=== PATIENT | male | born 1960 | race Caucasian/White ===

== ENCOUNTER → 2017-03-28 | Outpatient (CLI) | payer OTHER ==
[2017-03-28 09:18] VITALS: BP 111/78; PULSE 72; TEMP 97.8; BMI 69.5
--- NOTE | 2017-03-28 09:46 | P.GSHP ---
History of Present Illness H&P Date: 03/28/17 Chief Complaint: Morbid obesity BMI 69.5 57 years old male with morbid obesity BMI 69, height 5 feet 10.5 inches, weight 223.16 KG presents for bariatric surgery consultation. Patient has elected to undergo laparoscopic RYGB possible sleeve . He has attended weight loss seminar. He has attempted nonsurgical weight loss with special diets and exercise regimen. He has lost some weight but is unable to maintain sustained results. His comorbid conditions include obstructive sleep apnea on BiPAP, hypertension, hypercholesterolemia, chronic Afib and anxiety disorder Preop Visit #1 , 03/28/17 , weight 223KG, BMI 69.5 - Review of Systems Comment: Constitutional: Denies fever, weight loss or loss of appetite HEENT: No difficulty in vision or hearing. Denies dysphagia. Cardiovascular: Has chronic A fib. Denies chest pain, palpitations, dizziness, shortness of breath. Respiratory: No cough or SOB.Sleep apnea on CPAP Gastrointestinal: No recent change in bowel habits, no abdominal pain, no nausea or vomiting. Mild reflux symptoms and no postprandial right upper quadrant pain. Integumentary: No history of ulcers or rash Genitourinary: No urinary incontinence, hematuria or dysuria Neurologic: No seizures, denies weakness in upper or lower extremities Psychiatry: Known history of anxiety , no suicidal ideation Past Medical History Past Medical History: Atrial Fibrillation, GERD/Reflux, Hypertension, Sleep Apnea/CPAP/BIPAP History of Any Multi-Drug Resistant Organisms: None Reported Past Surgical History: Orthopedic Surgery Additional Past Surgical History / Comment(s): right rotator cuff surgery right foot surgery Past Anesthesia/Blood Transfusion Reactions: No Reported Reaction Past Psychological History: Anxiety Smoking Status: Former smoker Past Alcohol Use History: None Reported Additional Past Alcohol Use History / Comment(s): quit smoking over 20 years ago Past Drug Use History: None Reported Medications and Allergies Home Medications Medication Instructions Recorded Confirmed Type Apixaban [Eliquis] 1 tab PO BID 03/28/17 03/28/17 History Aspirin 1 tab PO DAILY 03/28/17 03/28/17 History Cholecalciferol [Vitamin D3] 1 tab PO BID 03/28/17 03/28/17 History Cyanocobalamin (Vitamin B-12) 1 tab PO DAILY 03/28/17 03/28/17 History [Vitamin B-12] L.acidoph,Paracasei, B.lactis 1 tab PO DAILY 03/28/17 03/28/17 History [Probiotic] Metoprolol Succinate [Toprol XL] 1 tab PO BID 03/28/17 03/28/17 History Multivitamin [Multiple Vitamins] 1 tab PO DAILY 03/28/17 03/28/17 History Naproxen Sodium 1 tab PO QID 03/28/17 03/28/17 History [place]-3 Fatty Acids/Fish Oil [Fish 1 cap PO DAILY 03/28/17 03/28/17 History Oil 1,000 mg Capsule] Omeprazole [PriLOSEC] 2 cap PO DAILY 03/28/17 03/28/17 History Ranitidine HCl [Zantac] 1 tab PO HS 03/28/17 03/28/17 History Valsartan/Hydrochlorothiazide 1 tab PO BID 03/28/17 03/28/17 History [Valsartan-Hctz 80-12.5 mg Tab] Venlafaxine HCl [Effexor XR] 1 cap PO DAILY 03/28/17 03/28/17 History amLODIPine [Norvasc] 1 tab PO DAILY 03/28/17 03/28/17 History diphenhydrAMINE [Benadryl] 1 tab PO DAILY 03/28/17 03/28/17 History Allergies Allergy/AdvReac Type Severity Reaction Status Date / Time No Known Allergies Allergy Verified 03/28/17 08:41 Surgical - Exam Vital Signs Temp Pulse BP 97.8 F 72 111/78 03/28/17 09:07 03/28/17 09:07 03/28/17 09:07 General: Patient is alert and oriented to time, place and person and cooperative with exam. He is not in acute distress. HEENT: No pallor, no icterus, no thyroid enlargement, no cervical lymphadenopathy. Chest: Bilateral equal breath sounds present. No wheezes, no crackles. Cardiovascular: Regular rate and rhythm. Abdomen: Soft, nontender, nondistended. No right upper quadrant tenderness. Duenas sign negative. Integumentary: No active ulcers or discharge. Neurologic: Cranial nerves II-XII intact. Strength upper and lower extremities 5/5. No focal neurologic deficits. Gait is normal. Psychiatric: No anxiety or psychosis. No suicidal thoughts. Assessment and Plan (1) Hypertension Status: Acute (2) Morbid obesity with BMI of 60.0-69.9, adult Status: Acute (3) Obstructive sleep apnea on CPAP Status: Acute (4) Atrial fibrillation Status: Acute (5) Osteoarth NOS-l/leg Status: Acute Plan: 1. A detailed discussion was held about the risks, benefits and potential complications of laparoscopic RYGB and sleeve gastrectomy including bleeding, infection, anastomosis leak, stenosis, DVT and PE. Patient demonstrated understanding and willing to undergo the procedure. Patient was explained about high-protein liquid diet 2 weeks prior to surgery. He is also considering sleeve and possible duodenal switch if more weight loss needed. 2. Formal Dietitian consult pending. Patient does eat a lot of fast food . He was recommended to drink protein shakes for snacks. I discussed about reducing the portion size, limiting refined carbohydrates and sugar and increase protein intake 3. Patient scheduled for esophagogastroduodenoscopy with antral biopsy and colonoscopy 4. Baseline lab work ordered. 12-lead EKG ordered 5. Cask Maker's recommendations and clearance awaited- Known A fib. May need lovenox bridge therapy in the perioperative period 6. Psychiatrist/ psychologist's recommendations pending
== END | disposition home or self-care (01) ==
LOC: BARWHC3 07:21
PROVIDERS: ATTEND Surgery
DX: E66.01 Morbid (severe) obesity due to excess calories (principal); I48.91 Unspecified atrial fibrillation; K21.9 Gastro-esophageal reflux disease without esophagitis; I10 Essential (primary) hypertension; F41.9 Anxiety disorder, unspecified; G47.33 Obstructive sleep apnea (adult) (pediatric); M19.90 Unspecified osteoarthritis, unspecified site; Z79.1 Long term (current) use of non-steroidal anti-inflammatories (NSAID); Z87.891 Personal history of nicotine dependence; Z79.01 Long term (current) use of anticoagulants; Z79.899 Other long term (current) drug therapy; Z79.82 Long term (current) use of aspirin; Z68.42 Body mass index [BMI] 45.0-49.9, adult
CPT/HCPCS: 99201

== ENCOUNTER 2017-05-02 11:31 | Day surgery (SDC) | payer OTHER ==
[2017-04-27 11:23] VITALS: BMI 70.4
[~2017-05-02 11:31] MED LIST: LACTATED RINGERS 1,000 ML IV SCH; LIDOCAINE 1% 20 ML VIAL (10MG/ML) FOR IV START INTRADERMA PRN
[2017-05-02 12:26] VITALS: RESP 18; TEMP 98
[2017-05-02] MEDS ORDERED: LACTATED RINGERS 1,000 ML IV ONE (12:26)
[2017-05-02] MEDS ORDERED: GLYCOPYRROLATE 0.2 MG/ML 2 ML VIAL ONE (14:20)
[2017-05-02] MEDS ORDERED: KETAMINE 10 MG/ML 20 ML VIAL ONE (14:20)
[2017-05-02] MEDS ORDERED: MIDAZOLAM 2 MG/2 ML VIAL ONE (14:20)
[2017-05-02] MEDS ORDERED: PROPOFOL 10 MG/ML 20 ML VIAL IV ONE (14:20)
[2017-05-02] MEDS ORDERED: LIDOCAINE 1% INJ 10MG/ML (20 ML MDV) ONE (14:20)
--- NOTE | 2017-05-02 14:25 | P.GSHP ---
History of Present Illness H&P Date: 05/02/17 Chief Complaint: Morbid obesity BMI 69.5 57 years old male with morbid obesity BMI 69, height 5 feet 10.5 inches, weight 223.16 KG presents for bariatric surgery consultation. Patient has elected to undergo laparoscopic RYGB possible sleeve . He has attended weight loss seminar. He has attempted nonsurgical weight loss with special diets and exercise regimen. He has lost some weight but is unable to maintain sustained results. His comorbid conditions include obstructive sleep apnea on BiPAP, hypertension, hypercholesterolemia, chronic Afib and anxiety disorder Preop Visit #1 , 03/28/17 , weight 223KG, BMI 69.5 - Review of Systems Comment: Constitutional: Denies fever, weight loss or loss of appetite HEENT: No difficulty in vision or hearing. Denies dysphagia. Cardiovascular: Has chronic A fib. Denies chest pain, palpitations, dizziness, shortness of breath. Respiratory: No cough or SOB.Sleep apnea on CPAP Gastrointestinal: No recent change in bowel habits, no abdominal pain, no nausea or vomiting. Mild reflux symptoms and no postprandial right upper quadrant pain. Integumentary: No history of ulcers or rash Genitourinary: No urinary incontinence, hematuria or dysuria Neurologic: No seizures, denies weakness in upper or lower extremities Psychiatry: Known history of anxiety , no suicidal ideation Past Medical History Past Medical History: Atrial Fibrillation, GERD/Reflux, Hyperlipidemia, Hypertension, Sleep Apnea/CPAP/BIPAP Additional Past Medical History / Comment(s): USES BIPAP WITH O2 SUPPLEMENT AT 3L FOR SLEEP History of Any Multi-Drug Resistant Organisms: None Reported Past Surgical History: Orthopedic Surgery Additional Past Surgical History / Comment(s): right rotator cuff surgery right foot surgery Past Anesthesia/Blood Transfusion Reactions: No Reported Reaction Smoking Status: Former smoker - Past Family History Mother Family Medical History: Deep Vein Thrombosis (DVT) Medications and Allergies Home Medications Medication Instructions Recorded Confirmed Type Apixaban [Eliquis] 5 mg PO BID 03/28/17 04/27/17 History Aspirin 81 mg PO HS 03/28/17 04/27/17 History Cholecalciferol [Vitamin D3] 2,000 unit PO QAM 03/28/17 04/27/17 History L.acidoph,Paracasei, B.lactis 1 tab PO QAM 03/28/17 04/27/17 History [Probiotic] Metoprolol Succinate [Toprol XL] 100 mg PO BID 03/28/17 04/27/17 History Multivitamin [Multiple Vitamins] 1 tab PO DAILY 03/28/17 04/27/17 History Naproxen Sodium 220 mg PO QID 03/28/17 04/27/17 History [place]-3 Fatty Acids/Fish Oil [Fish 1 cap PO QAM 03/28/17 04/27/17 History Oil 1,000 mg Capsule] Omeprazole [PriLOSEC] 40 mg PO QAM 03/28/17 04/27/17 History Ranitidine HCl [Zantac] 1 tab PO HS 03/28/17 04/27/17 History Valsartan/Hydrochlorothiazide 1 tab PO BID 03/28/17 04/27/17 History [Valsartan-Hctz 80-12.5 mg Tab] Venlafaxine HCl [Effexor XR] 150 mg PO QAM 03/28/17 04/27/17 History amLODIPine [Norvasc] 5 mg PO QAM 03/28/17 04/27/17 History diphenhydrAMINE [Benadryl] 25 mg PO DAILY 03/28/17 04/27/17 History Venlafaxine HCl [Effexor XR] 150 mg PO MOWEFR 04/27/17 04/27/17 History Vitamin B Complex 1 each PO QAM 04/27/17 04/27/17 History Allergies Allergy/AdvReac Type Severity Reaction Status Date / Time No Known Allergies Allergy Verified 04/27/17 11:07 Surgical - Exam Vital Signs Temp Pulse Resp BP Pulse Ox 98.0 F 78 18 117/67 97 05/02/17 12:25 05/02/17 12:25 05/02/17 12:25 05/02/17 12:25 05/02/17 12:25 General: Patient is alert and oriented to time, place and person and cooperative with exam. He is not in acute distress. HEENT: No pallor, no icterus, no thyroid enlargement, no cervical lymphadenopathy. Chest: Bilateral equal breath sounds present. No wheezes, no crackles. Cardiovascular: Regular rate and rhythm. Abdomen: Soft, nontender, nondistended. No right upper quadrant tenderness. Duenas sign negative. Integumentary: No active ulcers or discharge. Neurologic: Cranial nerves II-XII intact. Strength upper and lower extremities 5/5. No focal neurologic deficits. Gait is normal. Psychiatric: No anxiety or psychosis. No suicidal thoughts. Assessment and Plan (1) Atrial fibrillation Status: Acute (2) Hypertension Status: Acute (3) Morbid obesity with BMI of 60.0-69.9, adult Status: Acute (4) Obstructive sleep apnea on CPAP Status: Acute (5) Osteoarth NOS-l/leg Status: Acute Plan: 1. A detailed discussion was held about the risks, benefits and potential complications of laparoscopic RYGB and sleeve gastrectomy including bleeding, infection, anastomosis leak, stenosis, DVT and PE. Patient demonstrated understanding and willing to undergo the procedure. Patient was explained about high-protein liquid diet 2 weeks prior to surgery. He is also considering sleeve and possible duodenal switch if more weight loss needed. 2. Formal Dietitian consult pending. Patient does eat a lot of fast food . He was recommended to drink protein shakes for snacks. I discussed about reducing the portion size, limiting refined carbohydrates and sugar and increase protein intake 3. Patient scheduled for esophagogastroduodenoscopy with antral biopsy and colonoscopy 4. Baseline lab work ordered. 12-lead EKG ordered 5. Online Editor's recommendations and clearance awaited- Known A fib. May need lovenox bridge therapy in the perioperative period 6. Psychiatrist/ psychologist's recommendations pending
[2017-05-02 15:26] VITALS: BP 118/73; PULSE 88
--- NOTE | 2017-05-02 16:42 | P.OP ---
Date of Procedure: 05/02/17 Preoperative Diagnosis: Postoperative Diagnosis: Procedure(s) Performed: Implants: Anesthesia: MAC Surgeon: Sasha Walker Pathology: other Condition: stable Disposition: PACU Indications for Procedure: Operative Findings: Description of Procedure: A timeout was performed to verify the correct patient and correct procedure. Patient was on continuous vitals and pulse ox monitoring throughout the procedure. She was placed in lateral decubitus position and an oral bite block was inserted. A well-lubricated Olympus upper endoscope was passed orally. The esophagus was intubated without difficulty. The vocal cords were visualised and protected at all times. The endoscope was passed beyond the pylorus into the first and second portion of the duodenum. No normality is noted in the duodenum mucosa. Two random biopsies were taken from the gastric antrum using cold biopsy forceps. The scope was then retroflexed. Small hiatal was noted which is Hill Grade I. No mass, active ulcer or bleeding stigmata noted within the gastric lumen. The GE junction is measured at 40 cm from the incisors . No evidence of reflux esophagitis. The endoscope was gradually withdrawn. No abnormality identified in the esophagus. Patient tolerated the procedure well and was taken to post anesthesia care unit in stable condition. SPECIMEN: Antral biopsy RECOMMENDATION: 1. Proceed with laparoscopic sleeve gastrectomyThe patient was brought to the endoscopy suite and placed in lateral decubitus position. IV sedation was given as per anesthesia team. Patient was on continuous vitals and pulse oximetry monitoring throughout the procedure. A timeout was performed to verify correct patient and correct procedure. Perianal examination did not show any external hemorrhoids. Digital rectal examination was performed. No masses or gross blood. A well-lubricated Olympus colonoscope was passed per rectally and was gradually advanced beyond the sigmoid colon, splenic flexure, transverse colon, hepatic flexure and cecum. The ileocecal valve was visualized as well as the appendiceal orifice . The colonoscope was gradually withdrawn inspecting all the mucosal surfaces. Bowel prep was good. No polyps, masses, AV malformations noted. Sigmoid diverticulosis noted without any evidence of acute diverticulitis. The scope was gradually withdrawn and retroflexed in the rectum . Grade 1 internal hemorrhoids seen. Total withdrawal time was greater than 6 minutes . Patient tolerated the procedure well and was taken to post anesthesia care unit in stable condition. Recommend repeat colonoscopy in 10 years . Pending pathology reports.
== END 2017-05-02 16:09 | disposition home or self-care (01) ==
LOC: ORWHC2ENDO 11:31
PROVIDERS: ATTEND Surgery
DX: Z01.818 Encounter for other preprocedural examination (principal); K21.9 Gastro-esophageal reflux disease without esophagitis; K29.50 Unspecified chronic gastritis without bleeding; K57.30 Diverticulosis of large intestine without perforation or abscess without bleeding; K64.0 First degree hemorrhoids; E66.01 Morbid (severe) obesity due to excess calories; Z68.44 Body mass index [BMI] 60.0-69.9, adult; G47.33 Obstructive sleep apnea (adult) (pediatric); Z99.89 Dependence on other enabling machines and devices; I10 Essential (primary) hypertension; E78.00 Pure hypercholesterolemia, unspecified; I48.2 Chronic atrial fibrillation; Z79.01 Long term (current) use of anticoagulants; F41.9 Anxiety disorder, unspecified; Z87.891 Personal history of nicotine dependence; Z79.82 Long term (current) use of aspirin; Z79.899 Other long term (current) drug therapy
CPT/HCPCS: 88305; 88342; 45378; 43239; J2250; J2001; J2704

== ENCOUNTER → 2017-09-19 | Outpatient (CLI) | payer OTHER ==
[2017-09-19 16:40] VITALS: BP 109/71; PULSE 75; TEMP 98.2; BMI 67.8
[2017-09-19 18:10] LABS: HCT 46.6 % (39.0-53.0); HGB 15.2 gm/dL (13.0-17.5); MCH 32.2 pg (25.0-35.0); MCHC 32.5 g/dL (31.0-37.0); Platelet Count 199 k/uL (150-450); RBC 4.71 m/uL (4.30-5.90); RDW 14.1 % (11.5-15.5); WBC 8.5 k/uL (3.8-10.6)
[2017-09-19 18:28] LABS: ALT 41 U/L (21-72); AST 25 U/L (17-59); Albumin 4.3 g/dL (3.5-5.0); Alkaline Phosphatase 53 U/L (38-126); Anion Gap 9 mmol/L; Blood Urea Nitrogen 32 mg/dL (9-20); Calcium 9.7 mg/dL (8.4-10.2); Carbon Dioxide 29 mmol/L (22-30); Chloride 102 mmol/L (98-107); Cholesterol 187 mg/dL (<200); Glucose 113 mg/dL (74-99); HDL Cholesterol 29 mg/dL (40-60); LDL Cholesterol,Calculated 117 mg/dL (0-99); Potassium 4.1 mmol/L (3.5-5.1); Sodium 140 mmol/L (137-145); Total Bilirubin 0.6 mg/dL (0.2-1.3); Total Protein 7.6 g/dL (6.3-8.2); Triglycerides 205 mg/dL (<150)
[2017-09-20 01:08] LABS: Iron Saturation 20.13 (15.00-50.00)
[2017-09-20 01:12] LABS: Vitamin D 25 Hydroxy 31.9 ng/mL (30.0-100.0)
[2017-09-20 01:23] LABS: Folate, Serum 12.3 ng/mL
[2017-09-20 04:34] LABS: Hemoglobin A1C 5.2 % (4.0-6.0)
--- NOTE | 2017-11-03 22:14 | P.HPBAR ---
Bariatric H&P - History & Physicial H&P Date: 09/19/17 History & Physicial: Visit/CC: initial visit Patient initial contact: Initial weight: Initial weight in pounds: Height: 5 ft 10.5 in Initial BMI: Last weight: Current weight: 217.498 kg Current weight in pounds: 479.50 Current BMI: 67.8 Gallant body weight (based on NIH guidelines): 76.657 kg Excess body weight loss: The patient is a 57 year-old M who presents for Bariatric Assessment. DATE OF SERVICE: 09/19/2017 REASON FOR CONSULTATION: Bariatric evaluation. HISTORY OF PRESENT ILLNESS: Yasmany Hagan is a 57-year-old male who comes in with long-standing morbid obesity. He initially presented to the bariatric Center in March 2017 after being seen by Dr. Walker. At that time, he had weighed 491 pounds. His body mass index was 69.6. As a result of his long- standing morbid obesity, he has developed severe obstructive sleep apnea and hypertensive heart disease. He also has reports gastroesophageal reflux disease. As a result of his cardiomyopathy, he has chronic atrial fibrillation. He has completed cardiac risk assessment. He has diffuse osteoarthritis. Now he presents for further evaluation and management. No reports of fatty food intolerance. No reports of esophageal or stomach cancer in his family. He has a strong family history of morbid obesity and family history of heart disease. At his height of 5 feet 10.5 inches, his ideal body weight is 173 pounds. He comes in 478 pounds. His previous weight was 489 pounds. He has lost 10 pounds in 1 month. His body mass index is reduced from 69.6 to 67.8. His highest weight in 6 months is 491 pounds. He is 305 pounds overweight. PAST MEDICAL HISTORY: 1. Super morbid obesity. 2. Body mass index of 69.6. 3. Osteoarthritis of the knees. 4. Osteoarthritis of the hips. 5. Osteoarthritis of the lower back. 6. Obstructive sleep apnea. 7. Hypertensive heart disease. 8. Atrial fibrillation. 9. Gastroesophageal reflux disease. 10. Anxiety. PAST SURGICAL HISTORY: 1. Right foot surgery. 2. Right rotator cuff surgery. HOME MEDICATIONS: 1. Toprol-XL. 2. Valsartan-hydrochlorothiazide. 3. Norvasc. 4. Prilosec. ALLERGIES: Denies. SOCIAL HISTORY: Past tobacco use. He is . His is at bedside. FAMILY HISTORY: No family history of ulcerative colitis disease or Crohn's disease. Family history of morbid obesity. No lupus in the family. No reports of stomach or esophageal cancer. His family history of gallbladder disorder. REVIEW OF ORGAN SYSTEMS: CONSTITUTIONAL: At his height of 5 feet 10.5 inches, his ideal body weight is 173 pounds. He comes in 478 pounds. His previous weight was 489 pounds. He has lost 10 pounds in 1 month. His body mass index is reduced from 69.6 to 67.8. His highest weight in 6 months is 491 pounds. He is 305 pounds overweight. HEENT: Denies any active troubles with vision or hearing. No troubles with swallowing. ENDOCRINE: No diabetes. No hypothyroidism. CARDIOVASCULAR: Has atrial fibrillation. Has hyperlipidemia. RESPIRATORY: Has daytime somnolence. No asthma. Has obstructive sleep apnea. GI: Denies any bright red blood per rectum. No diarrhea or constipation. MUSCULOSKELETAL: Has lower back pain and joint pain. Has osteoarthritis of the knees. NEURO: No headaches. No seizure disorders. PSYCH: No depression or suicidal ideation. Has anxiety. RHEUMATOLOGIC: No lupus. No rheumatoid arthritis. HEMATOLOGIC: No personal history of DVTs. He is on chronic anticoagulation. SKIN: No rash. No skin cancer. PHYSICAL EXAM: VITAL SIGNS: Height 5 foot 10.5 inches, weight 478 pounds. BMI 67.8 Vital Signs Temp 98.2 F 09/19/17 16:35 Pulse 75 09/19/17 16:35 Resp BP 109/71 09/19/17 16:35 Pulse Ox GENERAL: Well-developed in no acute distress. HEENT: No scleral icterus. Extraocular movements grossly intact. Hears conversational speech. No nasal drainage. NECK: Supple without lymphadenopathy. CHEST: Nonlabored respirations with equal bilateral excursions. CARDIOVASCULAR: Irregular rate. Irregular rhythm. Distal 2+ pulses. ABDOMEN: Obese, soft, nontender, nondistended. MUSCULOSKELETAL: No clubbing, cyanosis. Gross strength 5/5 distal lower extremities. 2+ pre-tibial pitting edema. NEURO: No focal or lateralizing signs. Cranial nerves 2 through 12 grossly within normal limits. PSYCH: Appropriate affect. Alert and oriented to person, place and time. SKIN: Good skin turgor. Well perfused. STUDIES: EGD was consistent with gastritis. No evidence of hiatal hernia. H. pylori negative. Colonoscopy report was negative for colon polyps. ASSESSMENT: 1. Super morbid obesity. 2. Body mass index of 69.6 down to 67.8. 3. Osteoarthritis of the knees. 4. Osteoarthritis of the hips. 5. Osteoarthritis of the lower back. 6. Obstructive sleep apnea. 7. Hypertensive heart disease. 8. Atrial fibrillation. 9. Gastroesophageal reflux disease. 10. Anxiety. 11. Family history of morbid obesity. 12. Family history of gallbladder disorder. PLAN: 1. Surgical options including a band, gastric bypass, sleeve gastrectomy were described in detail. Alternatives such as gastric balloon including duodenal switch were described. 2. The [place] bariatric surgical collaborative data and outcomes calculator were described with surgical options. 3. Recommend a bariatric metabolic panel to evaluate for micro- including macronutrient deficiencies. 4. He has obstructive sleep apnea and uses a CPAP/BiPAP machine. 5. Dietary surveillance and counseling was reviewed. I have asked increased protein intake to at least 80 grams daily. 6. Will need cardiac risk assessment with a recent EKG. 7. Recommend medical risk assessment. 8. Psych assessment per insurance guidelines. 9. He has completed both upper and lower endoscopy Dr. Walker April 2017. Findings were negative for hiatal hernia. 10. Recommend 12-lead EKG with family history of hypertensive heart disease and atrial fibrillation. 11. Recommend dietitian follow-up for gastrectomy type procedures. 12. Close observation for gallbladder disorder as he loses weight. 13. Overall, patient is evaluating for a Nikki-en-Y gastric bypass. Thank you for this consultation. Laboratory Last Values WBC 8.5 k/uL (3.8-10.6) 09/19/17 17:45 RBC 4.71 m/uL (4.30-5.90) 09/19/17 17:45 Hgb 15.2 gm/dL (13.0-17.5) 09/19/17 17:45 Hct 46.6 % (39.0-53.0) 09/19/17 17:45 MCV 99.0 fL (80.0-100.0) 09/19/17 17:45 MCH 32.2 pg (25.0-35.0) 12/06/17 17:45 MCHC 32.5 g/dL (31.0-37.0) 09/19/17 17:45 RDW 14.1 % (11.5-15.5) 09/19/17 17:45 Plt Count 199 k/uL (150-450) 09/19/17 17:45 Sodium 140 mmol/L (137-145) 09/19/17 17:45 Potassium 4.1 mmol/L (3.5-5.1) 09/19/17 17:45 Chloride 102 mmol/L (98-107) 09/19/17 17:45 Carbon Dioxide 29 mmol/L (22-30) 09/19/17 17:45 Anion Gap 9 mmol/L 09/19/17 17:45 BUN 32 mg/dL (9-20) H 09/19/17 17:45 Creatinine 1.10 mg/dL (0.66-1.25) 09/19/17 17:45 Est GFR (MDRD) Af Amer >60 (>60 ml/min/1.73 sqM) 09/19/17 17:45 Est GFR (MDRD) Non-Af >60 (>60 ml/min/1.73 sqM) 09/19/17 17:45 Glucose 113 mg/dL (74-99) H 09/19/17 17:[address] Glu mg/dL 103 09/19/17 17:45 Hemoglobin A1c 5.2 % (4.0-6.0) 09/19/17 17:45 Calcium 9.7 mg/dL (8.4-10.2) 09/19/17 17:45 Iron 63 ug/dL (65-175) L 09/19/17 17:45 TIBC 313 ug/dL (228-460) 09/19/17 17:45 Iron Saturation 20.13 (15.00-50.00) 09/19/17 17:45 Ferritin 481.1 ng/mL (22.0-322.0) H 09/19/17 17:45 Total Bilirubin 0.6 mg/dL (0.2-1.3) 09/19/17 17:45 AST 25 U/L (17-59) 09/19/17 17:45 ALT 41 U/L (21-72) 09/19/17 17:45 Alkaline Phosphatase 53 U/L (38-126) 09/19/17 17:45 Total Protein 7.6 g/dL (6.3-8.2) 09/19/17 17:45 Albumin 4.3 g/dL (3.5-5.0) 09/19/17 17:45 Triglycerides 205 mg/dL (<150) H 09/19/17 17:45 Cholesterol 187 mg/dL (<200) 09/19/17 17:45 LDL Cholesterol, Calc 117 mg/dL (0-99) H 09/19/17 17:45 HDL Cholesterol 29 mg/dL (40-60) L 09/19/17 17:45 Vitamin B1 77 ug/L (38-122) 09/19/17 17:45 Vitamin B12 481.0 pg/mL (200.0-944.0) 09/19/17 17:45 Vitamin D 25-Hydroxy 31.9 ng/mL (30.0-100.0) 09/19/17 17:45 Folate 12.3 ng/mL 09/19/17 17:45 TSH 1.920 mIU/L (0.465-4.680) 09/19/17 17:45 EKG EKG PERFORMED 09/19/17 17:45 Findings consistent with low iron, hypertriglyceridemia, hyperlipidemia, dyslipidemia, EKG consistent with atrial fibrillation including multiple cardiac infarcts. Past Medical History Past Medical History: Atrial Fibrillation, GERD/Reflux, Hyperlipidemia, Hypertension, Sleep Apnea/CPAP/BIPAP Additional Past Medical History / Comment(s): USES BIPAP WITH O2 SUPPLEMENT AT 3L FOR SLEEP History of Any Multi-Drug Resistant Organisms: None Reported Past Surgical History: Orthopedic Surgery Additional Past Surgical History / Comment(s): right rotator cuff surgery right foot surgery Past Anesthesia/Blood Transfusion Reactions: No Reported Reaction Past Psychological History: Anxiety Smoking Status: Former smoker Past Alcohol Use History: Rare Additional Past Alcohol Use History / Comment(s): quit smoking 37 YRS AGO, SMOKED CIGARS OCCASIONALY Past Drug Use History: None Reported - Past Family History Mother Family Medical History: Deep Vein Thrombosis (DVT) Surgical - Exam Vital Signs Temp Pulse BP 98.2 F 75 109/71 09/19/17 16:35 09/19/17 16:35 09/19/17 16:35 Results - Labs 09/19/17 17:45 09/19/17 17:45 Bariatric Checklist Checklist: Plan: Checklist: EGD: 1. Hiatal hernia: 2. H. Pylori: HgbA1c: Vitamin D: Smoking: Former smoker Primary care physician referral: dr fajardo Psychiatry clearance: Cardiology clearance: Sleep study: Diet journal: VTE risk score: VTE risk level: Rehab needs at discharge:
== END | disposition home or self-care (01) ==
LOC: BARWHC3 15:51
PROVIDERS: ATTEND Surgery Plastic and Reconstructive Surgery
DX: E66.01 Morbid (severe) obesity due to excess calories (principal); M17.0 Bilateral primary osteoarthritis of knee; M16.0 Bilateral primary osteoarthritis of hip; M47.9 Spondylosis, unspecified; G47.33 Obstructive sleep apnea (adult) (pediatric); I11.0 Hypertensive heart disease with heart failure; I50.9 Heart failure, unspecified; I48.91 Unspecified atrial fibrillation; K21.9 Gastro-esophageal reflux disease without esophagitis; F41.9 Anxiety disorder, unspecified; E11.9 Type 2 diabetes mellitus without complications; E78.5 Hyperlipidemia, unspecified; E89.1 Postprocedural hypoinsulinemia; D50.8 Other iron deficiency anemias; E44.0 Moderate protein-calorie malnutrition; Z68.44 Body mass index [BMI] 60.0-69.9, adult; Z83.49 Family history of other endocrine, nutritional and metabolic diseases; Z98.890 Other specified postprocedural states; Z83.79 Family history of other diseases of the digestive system; Z71.3 Dietary counseling and surveillance; Z99.89 Dependence on other enabling machines and devices; Z87.891 Personal history of nicotine dependence; Z79.899 Other long term (current) drug therapy
CPT/HCPCS: 80053; 80061; 82306; 82607; 82728; 82746; 83036; 83540; 83550; 84425; 84443; 85027; 93005; 99211

== ENCOUNTER → 2017-10-02 | Outpatient (CLI) | payer OTHER ==
[2017-10-02 13:58] LABS: Basophils # (A) 0.1 k/uL (0-0.2); Basophils % (A) 1 %; CH 31.9; CHCM 32.3; Eosinophils # (A) 0.1 k/uL (0-0.7); Eosinophils % (A) 1 %; HCT 48.7 % (39.0-53.0); HDW 2.21; HGB 15.5 gm/dL (13.0-17.5); Luc # (Auto) 0.21; Luc % (Auto) 2; Lymphocytes # (A) 1.4 k/uL (1.0-4.8); Lymphocytes % (A) 17 %; MCH 31.6 pg (25.0-35.0); MCHC 31.8 g/dL (31.0-37.0); MCV 99.3 fL (80.0-100.0); Mean Platelet Volume 7.9; Monocytes # (A) 0.7 k/uL (0-1.0); Monocytes % (A) 9 %; Neutrophils % (A) 70 %; RDW 13.7 % (11.5-15.5); WBC 8.5 k/uL (3.8-10.6); WBC (Perox) 8.59
== END | disposition home or self-care (01) ==
LOC: LABPAT 13:22
PROVIDERS: ATTEND Surgery Plastic and Reconstructive Surgery
DX: Z01.812 Encounter for preprocedural laboratory examination (principal)
CPT/HCPCS: 36415; 85025; 86850; 86900; 86901

== ENCOUNTER → 2017-10-19 | Outpatient (CLI) | payer OTHER ==
[2017-10-19 10:27] VITALS: BMI 64.5
[2017-10-19 11:45] VITALS: BP 140/86; PULSE 91; TEMP 97.6
--- NOTE | 2017-11-14 22:43 | P.PN ---
Subjective Progress Note Date: 10/19/17 DATE OF SERVICE: 10/19/2017 CHIEF COMPLAINT: Follow gastric bypass. HISTORY OF PRESENT ILLNESS: Yasmany Hagan is a 57-year-old male who is status post gastric bypass 10/03/2017. He is doing well. No reports of nausea or vomiting. No reports of fevers or chills. He is on Lovenox as a bridge therapy for his anticoagulant. Otherwise no complaints. At his height of 5 feet 10.5 inches, his ideal body weight is 173 pounds. His highest weight in 6 months is 491 pounds. He comes in at 455 pounds. He has lost 23 pounds in 1 month. His body mass index is reduced from 69.6 to 64.5. Percent excess weight loss of 11% lifetime. PHYSICAL EXAM: VITAL SIGNS: Height 5 foot 10.5 inches, weight 455 pounds. BMI 64.5 Vital Signs Temp 97.6 F 10/19/17 11:39 Pulse 91 10/19/17 11:39 Resp BP 140/86 10/19/17 11:39 Pulse Ox GENERAL: Well-developed in no acute distress. HEENT: No scleral icterus. Extraocular movements grossly intact. Hears conversational speech. No nasal drainage. NECK: Supple without lymphadenopathy. CHEST: Nonlabored respirations with equal bilateral excursions. CARDIOVASCULAR: Irregular rate. Irregular rhythm. Distal 2+ pulses. ABDOMEN: Obese, soft, nontender, nondistended. MUSCULOSKELETAL: No clubbing, cyanosis. Gross strength 5/5 distal lower extremities. 1+ pre-tibial pitting edema bilateral. NEURO: No focal or lateralizing signs. Cranial nerves 2 through 12 grossly within normal limits. PSYCH: Appropriate affect. Alert and oriented to person, place and time. SKIN: Good skin turgor. Well perfused. ASSESSMENT: 1. Super morbid obesity. 2. Body mass index of 69.6 down to 64.5. 3. Osteoarthritis of the knees. 4. Osteoarthritis of the hips. 5. Osteoarthritis of the lower back. 6. Obstructive sleep apnea. 7. Hypertensive heart disease. 8. Atrial fibrillation. 9. Status post gastric bypass. PLAN: 1. Overall he is doing extremely well. 2. Start protein shakes tomorrow. 3. He will use the rest of his Lovenox pending bowel movement. 4. He may restart his blood thinners once he has bowel movement without blood. 5. Follow-up one week, otherwise 1 month postprocedure. Objective - Vital Signs Vital signs: Vital Signs Temp 97.6 F 10/19/17 11:39 Pulse 91 10/19/17 11:39 Resp BP 140/86 10/19/17 11:39 Pulse Ox Intake & Output 10/18/17 10/19/17 10/19/17 18:59 06:59 18:59 Weight 206.838 kg
== END | disposition home or self-care (01) ==
LOC: BARWHC3 09:40
PROVIDERS: ATTEND Surgery Plastic and Reconstructive Surgery
DX: Z48.815 Encounter for surgical aftercare following surgery on the digestive system (principal); E66.01 Morbid (severe) obesity due to excess calories; Z68.44 Body mass index [BMI] 60.0-69.9, adult; M17.0 Bilateral primary osteoarthritis of knee; M16.0 Bilateral primary osteoarthritis of hip; M47.816 Spondylosis without myelopathy or radiculopathy, lumbar region; G47.30 Sleep apnea, unspecified; I11.9 Hypertensive heart disease without heart failure; I48.91 Unspecified atrial fibrillation; Z98.84 Bariatric surgery status
CPT/HCPCS: 97803; 99211

== ENCOUNTER → 2018-01-23 | Outpatient (CLI) | payer OTHER ==
[2018-01-23 10:43] VITALS: BMI 58.9
== END | disposition home or self-care (01) ==
LOC: BARWHC3 10:07
PROVIDERS: ATTEND Surgery Plastic and Reconstructive Surgery
DX: E66.01 Morbid (severe) obesity due to excess calories (principal)
CPT/HCPCS: 97803

== ENCOUNTER → 2018-02-11 | Outpatient (CLI) | payer OTHER ==
[2018-02-11 11:16] LABS: HCT 48.3 % (39.0-53.0); HGB 16.2 gm/dL (13.0-17.5); MCH 32.1 pg (25.0-35.0); MCHC 33.5 g/dL (31.0-37.0); MCV 96.1 fL (80.0-100.0); Mean Platelet Volume 7.6; Platelet Count 195 k/uL (150-450); RBC 5.03 m/uL (4.30-5.90); WBC 8.9 k/uL (3.8-10.6)
[2018-02-11 11:34] LABS: ALT 42 U/L (21-72); AST 30 U/L (17-59); Albumin 3.8 g/dL (3.5-5.0); Alkaline Phosphatase 58 U/L (38-126); Anion Gap 13 mmol/L; Blood Urea Nitrogen 15 mg/dL (9-20); Calcium 9.6 mg/dL (8.4-10.2); Carbon Dioxide 22 mmol/L (22-30); Chloride 111 mmol/L (98-107); Cholesterol 158 mg/dL (<200); Glucose 93 mg/dL (74-99); HDL Cholesterol 32 mg/dL (40-60); LDL Cholesterol,Calculated 94 mg/dL (0-99); Magnesium 2.2 mg/dL (1.6-2.3); Phosphorus 2.8 mg/dL (2.5-4.5); Potassium 4.3 mmol/L (3.5-5.1); Sodium 146 mmol/L (137-145); Total Bilirubin 0.8 mg/dL (0.2-1.3); Total Protein 6.8 g/dL (6.3-8.2); Triglycerides 161 mg/dL (<150)
[2018-02-11 11:37] LABS: INR 1.1 (<1.2); Partial Thromboplastin Time 24.7 sec (22.0-30.0); Prothrombin Time 10.9 sec (9.0-12.0)
[2018-02-11 17:33] LABS: Parathyroid Hormone Intact 49.6 pg/mL (14.0-72.0)
[2018-02-11 17:50] LABS: Iron Saturation 38.64 (15.00-50.00)
[2018-02-11 17:59] LABS: Vitamin D 25 Hydroxy 25.7 ng/mL (30.0-100.0)
[2018-02-11 18:26] LABS: Folate, Serum 18.1 ng/mL
[2018-02-11 20:28] LABS: Hemoglobin A1C 5.2 % (4.0-6.0)
[2018-02-12 12:13] LABS: Zinc, Serum 72 ug/dL (60-130)
[2018-02-13 06:10] LABS: Vitamin B1 69 ug/L (38-122)
[2018-02-13 06:21] LABS: Vitamin A 45 ug/dL (38-106)
== END ==
LOC: LABWHC1 10:43
PROVIDERS: ATTEND Surgery Plastic and Reconstructive Surgery
DX: E66.01 Morbid (severe) obesity due to excess calories (principal); E21.1 Secondary hyperparathyroidism, not elsewhere classified; E89.1 Postprocedural hypoinsulinemia; D50.8 Other iron deficiency anemias; E44.0 Moderate protein-calorie malnutrition; E55.9 Vitamin D deficiency, unspecified; K74.1 Hepatic sclerosis; T56.894A Toxic effect of other metals, undetermined, initial encounter
CPT/HCPCS: 36415; 80053; 80061; 82306; 82525; 82607; 82728; 82746; 83036; 83540; 83550; 83735; 83970; 84100; 84134; 84255; 84425; 84443; 84590; 84630; 85027; 85610; 85730

== ENCOUNTER 2018-03-07 12:49 | Day surgery (SDC) | payer OTHER ==
[2018-03-01 12:22] VITALS: BMI 55.7
--- NOTE | 2018-03-07 12:34 | P.GSHP ---
History of Present Illness H&P Date: 03/07/18 CHIEF COMPLAINT: Cholecystitis HISTORY OF PRESENT ILLNESS: The patient is a 58-year-old male who presents with history of epigastric including right upper quadrant abdominal pain. He underwent diagnostic studies for the gallbladder. Separately his clinical picture was consistent with cholecystitis. Now he presents for surgical intervention. PAST MEDICAL HISTORY: Please see list PAST SURGICAL HISTORY: Please see list MEDICATIONS: Please see list ALLERGIES: Denies. SOCIAL HISTORY: No illicit drug use or recent tobacco use FAMILY HISTORY: Pertinent for gallbladder disease REVIEW OF ORGAN SYSTEMS: CONSTITUTIONAL: No reports of fevers or chills. Intentional weight loss over 60 pounds from recent bariatric surgery. PHYSICAL EXAM: VITAL SIGNS: Afebrile vital signs stable GENERAL: Well-developed pleasant male in no acute distress. HEENT: No scleral icterus. Extraocular movements grossly intact. Moist buccal mucosa. NECK: Supple without lymphadenopathy. CHEST: Unlabored respirations. Equal bilateral excursions. CARDIOVASCULAR: Irregular rate. Irregular rhythm. Distal 2+ pulses. ABDOMEN: Soft, nondistended. Tender along the epigastrium and right upper quadrant. MUSCULOSKELETAL: No clubbing, cyanosis, or edema. NEURO : No focal or lateralizing signs. Cranial nerves II-12 within normal limits. PSYCH: Alert and oriented to person, place and time. ASSESSMENT: 1. Epigastric and right upper quadrant abdominal pain 2. Gallstones. PLAN: 1. Will need a robotic cholecystectomy possible open. Benefits and risks were described. 2. Heparin for DVT prophylaxis 5000 units. 3. Antibiotic prophylaxis. Past Medical History Past Medical History: Atrial Fibrillation, GERD/Reflux, Hyperlipidemia, Hypertension, Osteoarthritis (OA), Sleep Apnea/CPAP/BIPAP Additional Past Medical History / Comment(s): USES BIPAP WITH O2 SUPPLEMENT AT 3L FOR SLEEP, MIGRAINES, VARICOSE VEINS, STATES SWELLING LOWER EXTREMITIES., ARTHRITIS KNEES.,HAS HAD AFIB FOR AT LEAST 4 YEARS History of Any Multi-Drug Resistant Organisms: None Reported Past Surgical History: Bariatric Surgery, Heart Catheterization, Orthopedic Surgery Additional Past Surgical History / Comment(s): right rotator cuff , right foot surgery, HEART C[facility] X2 [facility] [place]), CARDIOVERSION X 2. gastric bypass 10-12-17 Past Anesthesia/Blood Transfusion Reactions: No Reported Reaction Smoking Status: Former smoker - Past Family History Mother Family Medical History: Deep Vein Thrombosis (DVT) Medications and Allergies Home Medications Medication Instructions Recorded Confirmed Type Metoprolol Succinate [Toprol XL] 100 mg PO QAM 03/28/17 03/01/18 History Omeprazole [PriLOSEC] 40 mg PO QAM 03/28/17 03/01/18 History amLODIPine [Norvasc] 5 mg PO QAM 03/28/17 03/01/18 History Nystatin 100,000 Unit/gm Powd 1 applic TOPICAL BID #60 powder 11/07/17 03/01/18 Rx [Mycostatin Powder] Apixaban [Eliquis] 5 mg PO BID 01/23/18 03/01/18 History Donepezil [Aricept] 5 mg PO DAILY 01/23/18 03/01/18 History Gabapentin [Neurontin] 300 mg PO BID 01/23/18 03/01/18 History Venlafaxine HCl [Effexor XR] 150 mg PO DAILY 01/23/18 03/01/18 History Metoprolol Succinate [Toprol Xl] 50 mg PO HS 03/01/18 03/01/18 History Topiramate [Topamax] 25 mg PO HS 03/01/18 03/01/18 History Allergies Allergy/AdvReac Type Severity Reaction Status Date / Time No Known Allergies Allergy Verified 03/01/18 12:16
[~2018-03-07 12:49] MED LIST changes: +ACETAMINOPHEN IV (For NPO) 1,000 MG in EMPTY BAG 1 BAG IVPB ONE; +DEXAMETHASONE SOD PHOSPHATE 10 MG/ML 1 ML VIAL IV ONE; +HEPARIN SODIUM,PORCINE 5,000 UNIT/ML 1 ML VIAL SQ ONE; +HYDROmorphone 0.5 MG/0.5 ML SYRINGE IVP PRN; +INDOCYANINE GREEN 25 MG VIAL IV STA; -LACTATED RINGERS 1,000 ML IV SCH; -LIDOCAINE 1% 20 ML VIAL (10MG/ML) FOR IV START INTRADERMA PRN; +MIDAZOLAM 2 MG/2 ML VIAL IV PRN; +MORPHINE SULFATE 4 MG/ML SYRINGE IV PRN; +ONDANSETRON 4 MG/2 ML VIAL IVP ONE
[2018-03-07] MEDS: LACTATED RINGERS 1,000 ML IV SCH ×2 (13:43→23:44)
[2018-03-07] MEDS ORDERED: PHENYLEPHRINE-0.9% NACL SYG 1 MG/10 ML SYRINGE ONE (14:39)
[2018-03-07] MEDS ORDERED: MIDAZOLAM 2 MG/2 ML VIAL ONE (14:39)
[2018-03-07] MEDS ORDERED: ePHEDrine SULFATE/0.9% NACL/PF 50 MG/5 ML SYRINGE IV ONE (14:39)
[2018-03-07] MEDS ORDERED: PROPOFOL 10 MG/ML 20 ML VIAL IV ONE (14:39)
[2018-03-07] MEDS ORDERED: SUCCINYLCHOLINE CHLORIDE VIAL 200 MG/10 ML VIAL IV ONE (14:39)
[2018-03-07] MEDS ORDERED: LIDOCAINE 1% INJ 10MG/ML (20 ML MDV) ONE (14:39)
[2018-03-07] MEDS ORDERED: GLYCOPYRROLATE 0.2 MG/ML 2 ML VIAL ONE (14:39)
[2018-03-07] MEDS ORDERED: NEOSTIGMINE 1 MG/ML 10 ML VIAL ONE (14:39)
[2018-03-07] MEDS ORDERED: fentaNYL (PF) 50 MCG/ML 2 ML AMP ONE (14:39)
[2018-03-07] MEDS ORDERED: ROCURONIUM BROMIDE 10 MG/ML 10 ML VIAL IV ONE (14:39)
[2018-03-07] MEDS ORDERED: BUPIVACAINE (PF) 0.5% 30 ML VIAL SQ ONE (15:02)
[2018-03-07] MEDS ORDERED: NALOXONE 0.4 MG/ML 1 ML VIAL IV PRN (17:44)
[2018-03-07 17:53] VITALS: RESP 16
--- NOTE | 2018-03-07 17:53 | P.PCN ---
Date of Procedure: 03/07/18 Preoperative Diagnosis: Acute cholecystitis Postoperative Diagnosis: Acute cholecystitis Procedure(s) Performed: Robotic cholecystectomy, [facility] Anesthesia: GETA, local Surgeon: Thuy Garcia Estimated Blood Loss (ml): 30 Pathology: other Condition: stable Disposition: floor Operative Findings: 1. Severe intraop adhesions about gallbladder 2. Console time 109 minutes.
[2018-03-07] MEDS ORDERED: HYDROcodone/APAP 5-325MG 1 EACH TAB PO PRN (18:19)
[2018-03-07] MEDS ORDERED: ONDANSETRON 4 MG/2 ML VIAL IVP PRN (18:19)
[2018-03-07] MEDS ORDERED: HYDROmorphone 0.5 MG/0.5 ML SYRINGE IVP PRN (18:19)
[2018-03-07] MEDS ORDERED: METOCLOPRAMIDE 5 MG/ML 2 ML VIAL IVP PRN (18:19)
[2018-03-07] MEDS: GABAPENTIN 300 MG CAP PO SCH (20:45)
[2018-03-07] MEDS ORDERED: METOPROLOL SUCCINATE (ER) 100 MG TAB.ER.24H PO SCH (21:00)
[2018-03-07] MEDS ORDERED: TOPIRAMATE 25 MG TAB PO SCH (21:00)
[2018-03-08 07:23] VITALS: BP 127/79; PULSE 69; TEMP 97.7
[2018-03-08] MEDS ORDERED: amLODIPine 5 MG TAB PO SCH (09:00)
[2018-03-08] MEDS ORDERED: PANTOPRAZOLE 40 MG/10 ML VIAL IV SCH (09:00)
[2018-03-08] MEDS ORDERED: ENOXAPARIN 40 MG/0.4 ML SYRINGE SQ SCH (09:00)
[2018-03-08] MEDS ORDERED: VENLAFAXINE HCL ER 150 MG CAP PO SCH (09:00)
[2018-03-08] MEDS ORDERED: DONEPEZIL 5 MG TAB PO SCH (09:00)
[2018-03-08] MEDS ORDERED: METOPROLOL SUCCINATE (ER) 100 MG TAB.ER.24H PO SCH (09:00)
--- NOTE | 2018-03-08 09:13 | P.DS ---
Providers Expected date of discharge: 03/08/18 Attending physician: Thuy Garcia Primary care physician: [facility] Course: 58-year-old male who has a known history of epigastric discomfort including the right upper quadrant. Underwent diagnostic studies for the gallbladder clinical picture was consistent for cholecystitis on March 07 underwent robotic cholecystectomy for acute cholecystitis. Operative findings showed severe interop adhesions about the gallbladder. It was noted the patient is on elquist for atrial fibrillation. This has been held and will be restarted in the outpatient setting and a follow-up visit with Dr. Garcia. At the day of discharge patient had a TOSHA drain in place right anterior quadrant draining serous drainage surgical dressings dry abdomen soft tolerating diet afebrile room air sats are 98% heart rate was in the 70s no labs. Patient had been up ambulating in the unit. Patient was felt to be appropriate to be discharged home Impression discharge diagnosis Morbid obesity BMI 55 Atrial fibrillation on elquist Robotic cholecystectomy for acute cholecystitis with severe interop adhesions about gallbladder History of epigastric pain radiating to right upper quadrant diagnostic studies of the gallbladder consistent with cholecystitis The above impression and plan of care have been discussed and directed by signing physician. Tierra Wooten nurse practitioner acting as scribe for signing physician. Plan - Discharge Summary Discharge Rx Participant: Yes New Discharge Prescriptions: New HYDROcodone/APAP 5-325MG [[place] 5-325] 1 tab PO Q6HR PRN 3 Days #15 tab PRN Reason: Pain Control No Action Omeprazole [PriLOSEC] 40 mg PO QAM amLODIPine [Norvasc] 5 mg PO QAM Metoprolol Succinate [Toprol XL] 100 mg PO HS Nystatin 100,000 Unit/gm Powd [Mycostatin Powder] 1 applic TOPICAL BID #60 powder Venlafaxine HCl [Effexor XR] 150 mg PO DAILY Apixaban [Eliquis] 5 mg PO BID Gabapentin [Neurontin] 300 mg PO BID Donepezil [Aricept] 5 mg PO DAILY Metoprolol Succinate [Toprol Xl] 50 mg PO DAILY Topiramate [Topamax] 25 mg PO HS Discharge Medication List Metoprolol Succinate [Toprol XL] 100 mg PO HS 03/28/17 [History] Omeprazole [PriLOSEC] 40 mg PO QAM 03/28/17 [History] amLODIPine [Norvasc] 5 mg PO QAM 03/28/17 [History] Nystatin 100,000 Unit/gm Powd [Mycostatin Powder] 1 applic TOPICAL BID #60 powder 11/07/17 [Rx] Apixaban [Eliquis] 5 mg PO BID 01/23/18 [History] Donepezil [Aricept] 5 mg PO DAILY 01/23/18 [History] Gabapentin [Neurontin] 300 mg PO BID 01/23/18 [History] Venlafaxine HCl [Effexor XR] 150 mg PO DAILY 01/23/18 [History] Metoprolol Succinate [Toprol Xl] 50 mg PO DAILY 03/01/18 [History] Topiramate [Topamax] 25 mg PO HS 03/01/18 [History] HYDROcodone/APAP 5-325MG [[place] 5-325] 1 tab PO Q6HR PRN 3 Days #15 tab [Rx] Follow up Appointment(s)/Referral(s): Thuy Garcia MD [STAFF PHYSICIAN] - 03/19/18 10:40 am Patient Instructions/Handouts: Donte-Edl Toro Drain Care (DC), Laparoscopic Cholecystectomy (DC) Activity/Diet/Wound Care/Special Instructions: No tub bath for six weeks. Shower daily. No lifting over 4 pounds for the next 6 weeks. Monitor TOSHA drain and record. May use ice packs to surgical site. No driving while taking narcotic for pain. Do not remove the plastic dressings from surgical site Get up and walk every hour avoid prolonged sitting Do not restart elquist until seen in the follow-up visit with Dr. Garcia May use [id number] stool softeners avoid constipation Discharge Disposition: HOME SELF-CARE
[2018-03-08] MEDS: GABAPENTIN 300 MG CAP PO SCH (10:05)
--- NOTE | 2018-03-24 21:13 | P.OP ---
Date of Procedure: 03/07/18 Description of Procedure: Date of Procedure: 03/07/18 SURGEON: MATHIEU MERINO MD NUTRITION WORKER: 1. KENA MEJIAS 2. NANCI HAWKINS PREOPERATIVE DIAGNOSES: 1. Symptomatic gallstones. 2. Right upper quadrant abdominal pain. 3. Super morbid obesity. 4. Body mass index of 69.6 down to 55.8 5. Osteoarthritis of the knees. 6. Osteoarthritis of the hips. 7. Osteoarthritis of the lower back. 8. Obstructive sleep apnea. 9. Hypertensive heart disease. 10. Atrial fibrillation. 11. Chronic anticoagulant use. 12. Status post gastric bypass. 13. Right upper quadrant abdominal pain POSTOPERATIVE DIAGNOSES: 1. Symptomatic gallstones with acute cholecystitis 2. Right upper quadrant abdominal pain. 3. Super morbid obesity. 4. Body mass index of 69.6 down to 55.8 5. Osteoarthritis of the knees. 6. Osteoarthritis of the hips. 7. Osteoarthritis of the lower back. 8. Obstructive sleep apnea. 9. Hypertensive heart disease. 10. Atrial fibrillation. 11. Chronic anticoagulant use. 12. Status post gastric bypass. 13. Right upper quadrant abdominal pain 13. Hepatomegaly OPERATION: 1. Robotic-assisted da Devante Xi laparoscopic extensive lysis of adhesions over 2 hrs, perigastric adhesions 2. Robotic-assisted da Devante Xi laparoscopic cholecystectomy, multiport with FIREFLY Anesthesia: GETA, local Condition: stable Disposition: floor ESTIMATED BLOOD LOSS: 30 mL. SPECIMENS REMOVED: Gallbladder. COMPLICATIONS: None. OPERATIVE FINDINGS: 1. Severe intra-abdominal adhesions greater omentum to gallbladder requiring over 1.5 hrs were extensive lysis of adhesions about the gallbladder 2. Gangrenous gallbladder, atrophic from chronic obstruction 3. Gallbladder fluid of dirt-like gel consistency consistent with erosive cholecystitis 4. Severe hepatomegaly and moderate complexity adding additional hour to the case. 4. Console time 109 minutes. INDICATIONS: The patient is a 58-year-old male who presents with symptomatic gallstones and right upper quadrant abdominal pain Surgical intervention with a laparoscopic cholecystectomy was described at length including injury to the biliary tree, bleeding, infection, need for further surgery. Informed consent was obtained. Robotic assisted laparoscopic approach was described. Benefits and risks of the procedure including but not limited to bleeding, infection, injury to the biliary tree was described. Informed consent was obtained. DESCRIPTION OF PROCEDURE: Patient was brought to the operating room, placed in supine position. After general induction, the abdomen had been prepped and draped in standard sterile fashion. The robotic da Devante XI system was primed. After a timeout protocol was performed, the patient had been prepped and draped in standard sterile fashion. The patient was injected with indocyanine green. A 5 mm 0 degrees laparoscopic trocar entry was performed along the left upper quadrant. The abdomen was insufflated to 15 mmHg which she tolerated well. Diagnostic laparoscopy demonstrated severe hepatomegaly with complete obscurity of the gallbladder. Next, two 8 mm robotic ports were placed along the right upper abdomen. The camera 8-mm port was maintained along the midline. Another 8 mm port was placed along the left upper abdominal wall. Another 8 mm port was placed along the right lateral abdominal wall. The robot was docked along the left lateral abdomen. The patient was repositioned in steep reverse Trendelenburg position, over 14- degrees. Using a grasper for arm 3, a grasper for arm 4, including vessel sealer for arm 1, the robotic system was docked and primed as described. Instruments were interchanged by the assistant signal maintainer including hook Bovie cautery and clip appliers. The gallbladder was completely obscured by omental fat. More than 1.5 hours was used to identify and mobilize the gallbladder from the omentum. Additionally , complete cystic duct obstruction was confirmed as indocyanine green was evident along the liver and common bile duct. The gallbladder was atrophic in appearance. During dissection, iatrogenic decompression of the gallbladder occurred demonstrating dirt-like consistency of the contents of the gallbladder. Adhesions were identified along the infundibulum of the gallbladder and addressed using hook cautery. The gallbladder fundus was retracted over the dome of the liver. Initial attention was brought to the infundibulum which was gently retracted in the inferior lateral approach. Using a grasper, the cystic duct including the cystic artery was carefully skeletonized. FIREFLY was used to identify the common bile duct. Both the gallbladder and cystic duct were obstructed. Large PLASTIC clips were used throughout the entire case. To resect the gallbladder safely and avoid common bile duct injury, a robotic stapler 45 mm blue load was used to excise the gallbladder from the infundibulum. Again care was taken to avoid any injury to the biliary tree as the common bile duct was clearly visualized during this portion of dissection. Next, the cystic artery was clipped and cauterized. Electro-Bovie cautery was used to remove the gallbladder from the hepatic fossa using dome down approach prior to resecting the gallbladder at the infundibulum. Hemostasis was checked and found to be adequate. The robot was undocked. I re-scrubbed into the case. Using a 10 mm Endo Catch bag via the right lower quadrant incision, the specimen was removed from the abdominal cavity. A round #19 TOSHA drain was placed along the hepatic fossa and exited via the right lateral abdominal wall. A drain stitch using 2-0 nylon was placed. All incisions were cleansed using dilute hydrogen peroxide. Optifoam surgical dressing was placed along the right lateral port and left upper quadrant incision. All pneumoperitoneum instruments were evacuated from the abdominal cavity. The incisions were reapproximated using 4-0 Monocryl in an interrupted subcuticular fashion. Please note along the trocar sites, local anesthetic was placed as a field block prior to insertion of all instruments. Liquid glue was applied to the skin. At the end of the procedure needle, sponge, and instrument count had been verified correct by the manager surgical. The patient was transferred to postanesthesia care unit in stable condition. Intraoperative films were shared with the patient's family who were very pleased with the level of care. Console time 109 minutes
== END 2018-03-08 12:40 | disposition home or self-care (01) ==
LOC: OR 12:49 → 3SUR 15:35 → OR 03-08 12:40
PROVIDERS: ATTEND Surgery Plastic and Reconstructive Surgery
DX: K80.12 Calculus of gallbladder with acute and chronic cholecystitis without obstruction (principal); K66.0 Peritoneal adhesions (postprocedural) (postinfection); R16.0 Hepatomegaly, not elsewhere classified; E66.01 Morbid (severe) obesity due to excess calories; Z68.43 Body mass index [BMI] 50.0-59.9, adult; M17.9 Osteoarthritis of knee, unspecified; M16.10 Unilateral primary osteoarthritis, unspecified hip; G47.33 Obstructive sleep apnea (adult) (pediatric); I11.9 Hypertensive heart disease without heart failure; I48.91 Unspecified atrial fibrillation; G43.909 Migraine, unspecified, not intractable, without status migrainosus; I83.90 Asymptomatic varicose veins of unspecified lower extremity; K21.9 Gastro-esophageal reflux disease without esophagitis; E78.5 Hyperlipidemia, unspecified; F39 Unspecified mood [affective] disorder; Z98.84 Bariatric surgery status; Z99.89 Dependence on other enabling machines and devices; Z79.01 Long term (current) use of anticoagulants; Z79.899 Other long term (current) drug therapy; Z87.891 Personal history of nicotine dependence
CPT/HCPCS: 47562; 88304; J2250; J0330; J1644; J1100; J2710; J0690 ×2; J2405; J2001; J1650; J3010; J0131; J2370; J2704; C9113

== ENCOUNTER → 2018-03-20 | Outpatient (CLI) | payer OTHER ==
[2018-03-20 13:35] VITALS: BP 117/79; PULSE 60; RESP 16; TEMP 97.4; BMI 56.0
--- NOTE | 2018-03-20 13:58 | P.PN ---
Subjective Progress Note Date: 03/20/18 DATE OF SERVICE: 03/20/2018 CHIEF COMPLAINT: Follow gastric bypass. HISTORY OF PRESENT ILLNESS: Yasmany Hagan is a 57-year-old male who is status post gastric bypass 10/03/2017. His highest weight of 513 pounds. Today he comes in 396 pounds. At his height of 5 feet 10.5 inches, his ideal body weight is 173 pounds. His last weight was at 455 pounds. No abdominal pain. Protein is doing well. He has cut back on his cardiac medications. No dizziness. PLAN: 1. Follow up in June 2. Blood work now. 3. May return to the gym. 4. Pathology report reviewed. DATE OF SERVICE: 10/19/2017 CHIEF COMPLAINT: Follow gastric bypass. HISTORY OF PRESENT ILLNESS: Yasmany Hagan is a 57-year-old male who is status post gastric bypass 10/03/2017. He is doing well. No reports of nausea or vomiting. No reports of fevers or chills. He is on Lovenox as a bridge therapy for his anticoagulant. Otherwise no complaints. At his height of 5 feet 10.5 inches, his ideal body weight is 173 pounds. His highest weight in 6 months is 491 pounds. He comes in at 455 pounds. He has lost 23 pounds in 1 month. His body mass index is reduced from 69.6 to 64.5. Percent excess weight loss of 11% lifetime. PHYSICAL EXAM: VITAL SIGNS: Height 5 foot 10.5 inches, weight 455 pounds. BMI 64.5 Vital Signs Temp 97.6 F 10/19/17 11:39 Pulse 91 10/19/17 11:39 Resp BP 140/86 10/19/17 11:39 Pulse Ox GENERAL: Well-developed in no acute distress. HEENT: No scleral icterus. Extraocular movements grossly intact. Hears conversational speech. No nasal drainage. NECK: Supple without lymphadenopathy. CHEST: Nonlabored respirations with equal bilateral excursions. CARDIOVASCULAR: Irregular rate. Irregular rhythm. Distal 2+ pulses. ABDOMEN: Obese, soft, nontender, nondistended. MUSCULOSKELETAL: No clubbing, cyanosis. Gross strength 5/5 distal lower extremities. 1+ pre-tibial pitting edema bilateral. NEURO: No focal or lateralizing signs. Cranial nerves 2 through 12 grossly within normal limits. PSYCH: Appropriate affect. Alert and oriented to person, place and time. SKIN: Good skin turgor. Well perfused. ASSESSMENT: 1. Super morbid obesity. 2. Body mass index of 69.6 down to 64.5. 3. Osteoarthritis of the knees. 4. Osteoarthritis of the hips. 5. Osteoarthritis of the lower back. 6. Obstructive sleep apnea. 7. Hypertensive heart disease. 8. Atrial fibrillation. 9. Status post gastric bypass. PLAN: 1. Overall he is doing extremely well. 2. Start protein shakes tomorrow. 3. He will use the rest of his Lovenox pending bowel movement. 4. He may restart his blood thinners once he has bowel movement without blood. 5. Follow-up one week, otherwise 1 month postprocedure.
[2018-03-20 15:23] LABS: HCT 47.4 % (39.0-53.0); MCH 32.8 pg (25.0-35.0); MCHC 33.8 g/dL (31.0-37.0); MCV 97.2 fL (80.0-100.0); Mean Platelet Volume 7.1; Platelet Count 208 k/uL (150-450); RBC 4.88 m/uL (4.30-5.90); RDW 13.8 % (11.5-15.5); WBC 6.3 k/uL (3.8-10.6)
[2018-03-20 15:36] LABS: INR 1.1 (<1.2); Partial Thromboplastin Time 25.6 sec (22.0-30.0)
[2018-03-20 15:38] LABS: ALT 62 U/L (21-72); AST 44 U/L (17-59); Alkaline Phosphatase 66 U/L (38-126); Anion Gap 11 mmol/L; Blood Urea Nitrogen 15 mg/dL (9-20); Calcium 9.4 mg/dL (8.4-10.2); Carbon Dioxide 25 mmol/L (22-30); Chloride 108 mmol/L (98-107); Cholesterol 149 mg/dL (<200); Glucose 83 mg/dL (74-99); HDL Cholesterol 30 mg/dL (40-60); LDL Cholesterol,Calculated 93 mg/dL (0-99); Magnesium 2.2 mg/dL (1.6-2.3); Phosphorus 3.4 mg/dL (2.5-4.5); Potassium 4.8 mmol/L (3.5-5.1); Sodium 144 mmol/L (137-145); Total Protein 6.8 g/dL (6.3-8.2); Triglycerides 132 mg/dL (<150)
[2018-03-20 19:03] LABS: Iron Saturation 22.82 (15.00-50.00)
[2018-03-20 19:11] LABS: Vitamin D 25 Hydroxy 29.9 ng/mL (30.0-100.0)
[2018-03-20 19:17] LABS: Folate, Serum 18.2 ng/mL
[2018-03-20 19:30] LABS: Parathyroid Hormone Intact 67.4 pg/mL (14.0-72.0)
[2018-03-20 20:50] LABS: Hemoglobin A1C 5.1 % (4.0-6.0)
[2018-03-21 14:23] LABS: Zinc, Serum 68 ug/dL (60-130)
[2018-03-22 05:34] LABS: Vitamin B1 87 ug/L (38-122)
[2018-03-22 05:43] LABS: Vitamin A 54 ug/dL (38-106)
[2018-03-23 10:31] LABS: Selenium 108 mcg/L (63-160)
== END | disposition home or self-care (01) ==
LOC: BARWHC3 13:02
PROVIDERS: ATTEND Surgery Plastic and Reconstructive Surgery
DX: Z48.815 Encounter for surgical aftercare following surgery on the digestive system (principal); E66.01 Morbid (severe) obesity due to excess calories; M17.0 Bilateral primary osteoarthritis of knee; M16.0 Bilateral primary osteoarthritis of hip; M47.9 Spondylosis, unspecified; G47.33 Obstructive sleep apnea (adult) (pediatric); I11.9 Hypertensive heart disease without heart failure; I48.91 Unspecified atrial fibrillation; Z98.84 Bariatric surgery status; Z68.44 Body mass index [BMI] 60.0-69.9, adult; Z79.01 Long term (current) use of anticoagulants
CPT/HCPCS: 36415; 80053; 80061; 82306; 82525; 82607; 82728; 82746; 83036; 83540; 83550; 83735; 83970; 84100; 84134; 84255; 84425; 84443; 84590; 84630; 85027; 85610; 85730; 97803; 99211

== ENCOUNTER → 2018-07-03 | Outpatient (CLI) | payer OTHER ==
[2018-07-03 14:22] VITALS: BMI 52.4
--- NOTE | 2018-07-03 14:29 | P.PN ---
Subjective Progress Note Date: 07/03/18 HPI: He has lost over 140 pounds. Has increased gas. He has trouble with migraines and dizzy spells and cannot return to work as result. These symptoms were pre-existent. ADBOMEN: Non-tender. PLAN: 1. Get labs. 2. He is pending to see a new neurologist Objective - Vital Signs Vital signs: Intake & Output 07/02/18 07/03/18 07/03/18 18:59 06:59 18:59 Weight 168.011 kg
[2018-07-03 15:00] VITALS: BP 114/80; PULSE 88; TEMP 98.2
[2018-07-03 15:41] LABS: HCT 46.5 % (39.0-53.0); HGB 14.4 gm/dL (13.0-17.5); MCH 30.2 pg (25.0-35.0); MCV 97.4 fL (80.0-100.0); Mean Platelet Volume 7.6; Platelet Count 219 k/uL (150-450); RBC 4.77 m/uL (4.30-5.90); RDW 13.4 % (11.5-15.5); WBC 7.6 k/uL (3.8-10.6)
[2018-07-03 15:53] LABS: ALT 42 U/L (21-72); AST 27 U/L (17-59); Albumin 3.7 g/dL (3.5-5.0); Alkaline Phosphatase 65 U/L (38-126); Anion Gap 8 mmol/L; Blood Urea Nitrogen 14 mg/dL (9-20); Calcium 9.4 mg/dL (8.4-10.2); Carbon Dioxide 26 mmol/L (22-30); Chloride 107 mmol/L (98-107); Cholesterol 166 mg/dL (<200); Glucose 92 mg/dL (74-99); HDL Cholesterol 39 mg/dL (40-60); INR 1.2 (<1.2); LDL Cholesterol,Calculated 101 mg/dL (0-99); Magnesium 2.1 mg/dL (1.6-2.3); Potassium 4.7 mmol/L (3.5-5.1); Sodium 141 mmol/L (137-145); Total Bilirubin 1.1 mg/dL (0.2-1.3); Triglycerides 132 mg/dL (<150)
[2018-07-03 15:54] LABS: Partial Thromboplastin Time 27.1 sec (22.0-30.0); Prothrombin Time 11.2 sec (9.0-12.0)
[2018-07-04 01:59] LABS: Parathyroid Hormone Intact 44.4 pg/mL (14.0-72.0)
[2018-07-04 03:42] LABS: Vitamin D 25 Hydroxy 55.2 ng/mL (30.0-100.0)
[2018-07-04 03:43] LABS: Folate, Serum 19.1 ng/mL
[2018-07-04 04:19] LABS: Hemoglobin A1C 5.2 % (4.0-6.0)
[2018-07-04 15:05] LABS: Zinc, Serum 67 ug/dL (60-130)
[2018-07-05 07:14] LABS: Vitamin B1 76 ug/L (38-122)
== END | disposition home or self-care (01) ==
LOC: BARWHC3 13:17
PROVIDERS: ATTEND Surgery Plastic and Reconstructive Surgery
DX: G43.909 Migraine, unspecified, not intractable, without status migrainosus (principal); R14.3 Flatulence; E66.01 Morbid (severe) obesity due to excess calories; E21.1 Secondary hyperparathyroidism, not elsewhere classified; D50.9 Iron deficiency anemia, unspecified; E89.1 Postprocedural hypoinsulinemia; E44.0 Moderate protein-calorie malnutrition; E55.9 Vitamin D deficiency, unspecified; K74.1 Hepatic sclerosis; N19 Unspecified kidney failure; K50.90 Crohn's disease, unspecified, without complications; Z68.43 Body mass index [BMI] 50.0-59.9, adult
CPT/HCPCS: 36415; 80053; 80061; 82306; 82525; 82607; 82728; 82746; 83036; 83540; 83550; 83735; 83970; 84100; 84134; 84255; 84425; 84443; 84590; 84630; 85027; 85610; 85730; 97803; 99211

== ENCOUNTER → 2018-10-30 | Outpatient (CLI) | payer OTHER ==
[2018-10-30 14:24] VITALS: BMI 50.1
[2018-10-30 14:38] VITALS: BP 123/79; PULSE 52; TEMP 98.1
--- NOTE | 2018-10-30 15:04 | P.PN ---
Subjective Progress Note Date: 10/30/18 DATE OF SERVICE: 10/30/2018 CHIEF COMPLAINT: Follow up gastric bypass HISTORY OF PRESENT ILLNESS: Yasmany Hagan is a 58-year-old male who is status post gastric bypass 10/03/2017. He is over 1 year out. He is doing well. No belly pain. He is still using CPAP but required downward adjustment. Otherwise no issues with reflux or dysphagia. His is at bedside. He is 1 year out and lost over 150 pounds. He is off several heart medications. His highest weight of 513 pounds, lifetime. Today he comes in 353 pounds from 370 pounds, 4 months ago. He has lost 16 pounds in 4 months. At his height of 5 feet 10.5 inches, his ideal body weight is 173 pounds. He has lost 160 pounds, lifetime. Percent excess weight loss is 47 %, lifetime. His body mass index is reduced from 72.7 down to 50.1 PHYSICAL EXAM: VITAL SIGNS: Height 5 foot 10.5 inches, weight 353 pounds. BMI 50.1 Vital Signs Temp 98.1 F 10/30/18 13:43 Pulse 52 L 10/30/18 13:43 Resp BP 123/79 10/30/18 13:43 Pulse Ox GENERAL: Well-developed in no acute distress. HEENT: No scleral icterus. Extraocular movements grossly intact. Hears conversational speech. No nasal drainage. NECK: Supple without lymphadenopathy. CHEST: Nonlabored respirations with equal bilateral excursions. CARDIOVASCULAR: Irregular rate. Irregular rhythm. Distal 2+ pulses. ABDOMEN: Obese, soft, nontender, nondistended. MUSCULOSKELETAL: No clubbing, cyanosis. NEURO: No focal or lateralizing signs. Cranial nerves 2 through 12 grossly within normal limits. PSYCH: Appropriate affect. Alert and oriented to person, place and time. SKIN: Good skin turgor. Well perfused. ASSESSMENT: 1. Super morbid obesity. 2. Body mass index of 72.7 down to 50.1 3. Osteoarthritis of the knees. 4. Osteoarthritis of the hips. 5. Osteoarthritis of the lower back. 6. Obstructive sleep apnea. 7. Hypertensive heart disease. 8. Atrial fibrillation. 9. Status post gastric bypass. PLAN: 1. Bariatric labs for every 3 month follow up. 2. Follow up in [facility] Last Values WBC 5.7 k/uL (3.8-10.6) 10/30/18 16: RBC 4.82 m/uL (4.30-5.90) 10/30/18 16:22 Hgb 15.3 gm/dL (13.0-17.5) 10/30/18 16:22 Hct 47.9 % (39.0-53.0) 10/30/18 16:22 MCV 99.2 fL (80.0-100.0) 10/30/18 16: MCH 31.7 pg (25.0-35.0) 10/30/18 16: MCHC 31.9 g/dL (31.0-37.0) 10/30/18: RDW 13.2 % (11.5-15.5) 10/30/18 16: Plt Count 183 k/uL (150-450) 10/30/18 16: PT 11.6 sec (9.0-12.0) 10/30/18 16: INR 1.1 (<1.2) 10/30/18 16: APTT 27.2 sec (22.0-30.0) 10/30/18 16:22 Sodium 141 mmol/L (135-145) 10/30/18 16:22 Potassium 4.6 mmol/L (3.5-5.5) 10/30/18 16: Chloride 107 mmol/L (96-109) 10/30/18 16: Carbon Dioxide 27.0 mmol/L (21.6-31.8) 10/30/18 16: Anion Gap 7.00 mmol/L (4.00-12.00) 10/30/18 16:22 BUN 11.0 mg/dL (9.0-27.0) 10/30/18 16: Creatinine 1.1 mg/dL (0.6-1.5) 10/30/18 16: Est GFR (CKD-EPI)AfAm 85.3 (60.0-200.0) 10/30/18 16: Est GFR (CKD-EPI)NonAf 73.6 (60.0-200.0) 10/30/18 16:22 BUN/Creatinine Ratio 10.00 Ratio (12.00-20.00) L 10/30/18 16:22 Glucose 86 mg/dL (70-110) 10/30/18 16:[address] Glu mg/dL 100 10/30/18 16:22 Hemoglobin A1c 5.1 % (4.0-6.0) 10/30/18 16:22 Calcium 9.2 mg/dL (8.7-10.3) 10/30/18 16:22 Phosphorus 4.0 mg/dL (2.4-5.1) 10/30/18 16:22 Magnesium 2.1 mg/dL (1.5-2.4) 10/30/18 16:22 Iron 82 ug/dL (65-175) 10/30/18 16:22 TIBC 297 ug/dL (228-460) 10/30/18 16:22 Iron Saturation 27.61 (15.00-50.00) 10/30/18 16:22 Ferritin 327.9 ng/mL (22.0-322.0) H 10/30/18 16:22 Total Bilirubin 1.2 mg/dL (0.3-1.2) 10/30/18 16:22 AST 23 U/L (14-35) 10/30/18 16:22 ALT 28 U/L (10-49) 10/30/18 16:22 Alkaline Phosphatase 54 U/L (41-126) 10/30/18 16:22 Total Protein 6.1 g/dL (6.2-8.2) L 10/30/18 16:22 Albumin 4.10 g/dL (3.80-4.90) 10/30/18 16:22 Globulin 2.0 g/dL (1.6-3.3) 10/30/18 16:22 Albumin/Globulin Ratio 2.05 g/dL (1.20-2.10) 10/30/18 16:22 Prealbumin 22.0 mg/dL (18.0-42.0) 10/30/18 16:22 Triglycerides 73.0 mg/dL (0.0-149.0) 10/30/18 16:22 Cholesterol 144 mg/dL (0-200) 10/30/18 16:22 LDL Cholesterol, Calc 85.4 mg/dL (0.0-131.0) 10/30/18 16:22 VLDL Cholesterol, Calc 14.60 mg/dL (5.00-40.00) 10/30/18 16:22 HDL Cholesterol 44.0 mg/dL (40.0-60.0) 10/30/18 16:22 Cholesterol/HDL Ratio 3.27 10/30/18 16:22 Vitamin A 44 ug/dL (38-106) 10/30/18 16:22 Vitamin B1 89 ug/L (38-122) 10/30/18 16:22 Vitamin B12 605.0 pg/mL (200.0-944.0) 10/30/18 16:22 Vitamin D 25-Hydroxy 54.1 ng/mL (30.0-100.0) 10/30/18 16:22 Folate 10.9 ng/mL 10/30/18 16:22 TSH 1.910 uIU/mL (0.350-5.500) 10/30/18 16:22 PTH Intact 58.8 pg/mL (14.0-72.0) 10/30/18 16:22 Copper 764 ug/L (665-1480) 10/30/18 16:22 Selenium 126 mcg/L (63-160) 10/30/18 16:22 Zinc 68 ug/dL (60-130) 10/30/18 16:22 Objective - Vital Signs Vital signs: Vital Signs Temp 98.1 F 10/30/18 13:43 Pulse 52 L 10/30/18 13:43 Resp BP 123/79 10/30/18 13:43 Pulse Ox Intake & Output 10/29/18 10/30/18 10/30/18 18:59 06:59 18:59 Weight 160.617 kg - Labs CBC & Chem 7: 10/30/18 16:22 10/30/18 16:22
[2018-10-30 16:41] LABS: HCT 47.9 % (39.0-53.0); HGB 15.3 gm/dL (13.0-17.5); MCH 31.7 pg (25.0-35.0); MCHC 31.9 g/dL (31.0-37.0); MCV 99.2 fL (80.0-100.0); Platelet Count 183 k/uL (150-450); RBC 4.82 m/uL (4.30-5.90); RDW 13.2 % (11.5-15.5); WBC 5.7 k/uL (3.8-10.6)
[2018-10-30 16:54] LABS: INR 1.1 (<1.2); Partial Thromboplastin Time 27.2 sec (22.0-30.0); Prothrombin Time 11.6 sec (9.0-12.0)
[2018-10-31 02:51] LABS: Iron Saturation 27.61 (15.00-50.00)
[2018-10-31 02:57] LABS: Albumin 4.1 g/dL (3.80-4.90); Albumin/Globulin Ratio 2.05 (1.20-2.10); Calcium 9.2 mg/dL (8.7-10.3); LDL Cholesterol,Calculated 85.4 mg/dL (0.0-131.0); Magnesium 2.1 mg/dL (1.5-2.4); Potassium 4.6 mmol/L (3.5-5.5); Total Bilirubin 1.2 mg/dL (0.3-1.2); Total Protein 6.1 g/dL (6.2-8.2); VLDL Calculation 14.6 mg/dL (5.00-40.00)
[2018-10-31 03:00] LABS: Vitamin D 25 Hydroxy 54.1 ng/mL (30.0-100.0)
[2018-10-31 04:14] LABS: Folate, Serum 10.9 ng/mL
[2018-10-31 04:54] LABS: Parathyroid Hormone Intact 58.8 pg/mL (14.0-72.0)
[2018-10-31 05:01] LABS: Hemoglobin A1C 5.1 % (4.0-6.0)
[2018-10-31 13:28] LABS: Zinc, Serum 68 ug/dL (60-130)
[2018-11-01 04:30] LABS: Vitamin B1 89 ug/L (38-122)
[2018-11-01 04:41] LABS: Vitamin A 44 ug/dL (38-106)
[2018-11-02 19:41] LABS: Selenium 126 mcg/L (63-160)
== END | disposition home or self-care (01) ==
LOC: BARWHC3 13:35
PROVIDERS: ATTEND Surgery Plastic and Reconstructive Surgery
DX: Z09 Encounter for follow-up examination after completed treatment for conditions other than malignant neoplasm (principal); E66.01 Morbid (severe) obesity due to excess calories; R63.4 Abnormal weight loss; M17.0 Bilateral primary osteoarthritis of knee; M16.0 Bilateral primary osteoarthritis of hip; M47.816 Spondylosis without myelopathy or radiculopathy, lumbar region; G47.33 Obstructive sleep apnea (adult) (pediatric); I11.9 Hypertensive heart disease without heart failure; I48.91 Unspecified atrial fibrillation; Z98.890 Other specified postprocedural states; Z68.43 Body mass index [BMI] 50.0-59.9, adult; Z98.84 Bariatric surgery status
CPT/HCPCS: 36415; 80053; 80061; 82306; 82525; 82607; 82728; 82746; 83036; 83540; 83550; 83735; 83970; 84100; 84134; 84255; 84425; 84443; 84590; 84630; 85027; 85610; 85730; 97803; 99211

== ENCOUNTER → 2019-11-19 | Outpatient (CLI) | payer OTHER ==
[2019-11-19 14:13] VITALS: BP 142/103; PULSE 86; TEMP 98.1; BMI 47.0
--- NOTE | 2019-11-19 14:25 | P.PN ---
Subjective Progress Note Date: 11/19/19 DATE OF SERVICE: 11/19/2019 CHIEF COMPLAINT: Status post gastric bypass HISTORY OF PRESENT ILLNESS: Yasmany Hagan is a 59-year-old male who is status post gastric bypass 10/03/2017. He is over 2 years out. He has lost 170+ pounds. He denies any abdominal pain. He reports increased flatus and gas. No reports of dysphagia. He is not eating too much. He is eating 60+ grams of protein daily. He is doing overall well. His highest weight of 513 pounds, lifetime. Today he comes in 332 pounds from 353 pounds, 1 year ago. He has lost 121pounds in 1 year. At his height of 5 feet 10.5 inches, his ideal body weight is 173 pounds. He has lost 181 pounds, lifetime. Percent excess weight loss is 53 %, lifetime. His body mass index is reduced from 72.7 down to 47.1. PHYSICAL EXAM: VITAL SIGNS: Height 5 foot 10.5 inches, weight 332 pounds. BMI 47.1 Vital Signs Temp 98.1 F 11/19/19 14:06 Pulse 86 11/19/19 14:06 Resp BP 142/103 11/19/19 14:06 Pulse Ox GENERAL: Well-developed in no acute distress. HEENT: No scleral icterus. Extraocular movements grossly intact. Hears conversational speech. No nasal drainage. NECK: Supple without lymphadenopathy. CHEST: Nonlabored respirations with equal bilateral excursions. CARDIOVASCULAR: Distal 2+ pulses. ABDOMEN: No hernia. Pannus over 20+ pounds. Soft, nontender. Panniculitis present, mild. MUSCULOSKELETAL: No clubbing, cyanosis. NEURO: No focal or lateralizing signs. Cranial nerves 2 through 12 grossly with in normal limits. PSYCH: Appropriate affect. Alert and oriented to person, place and time. SKIN: Good skin turgor. Well perfused. ASSESSMENT: 1. Super morbid obesity. 2. Body mass index of 72.7 down to 47.1 3. Osteoarthritis of the knees. 4. Osteoarthritis of the hips. 5. Osteoarthritis of the lower back. 6. Obstructive sleep apnea. 7. Hypertensive heart disease. 8. Atrial fibrillation. 9. Status post gastric bypass. 10. Panniculitis 11. Inadequate protein intake PLAN: 1. Recommend bariatric labs 2. [facility] [place] reviewed as he doing well. 3. Recommend Nystatin powder for panniculitis, prescribed. 4. Protein intake is supbar. Recommend increase protein intake to over 90 grams daily Laboratory Last Values WBC 5.8 k/uL (3.8-10.6) 11/19/19 14:38 RBC 4.62 m/uL (4.30-5.90) 11/19/19 14:38 Hgb 14.9 gm/dL (13.0-17.5) 11/19/19 14:38 Hct 46.8 % (39.0-53.0) 11/19/19 14:38 MCV 101.4 fL (80.0-100.0) H 11/19/19 14:38 MCH 32.2 pg (25.0-35.0) 11/19/19 14:38 MCHC 31.7 g/dL (31.0-37.0) 11/19/19 14:38 RDW 12.6 % (11.5-15.5) 11/19/19 14:38 Plt Count 162 k/uL (150-450) 11/19/19 14:38 PT 11.2 sec (9.0-12.0) 11/19/19 14:38 INR 1.1 (<1.2) 11/19/19 14:38 APTT 25.2 sec (22.0-30.0) 11/19/19 14:38 Sodium 141 mmol/L (135-145) 11/19/19 14:38 Potassium 5.3 mmol/L (3.5-5.5) 11/19/19 14:38 Chloride 106 mmol/L (96-109) 11/19/19 14:38 Carbon Dioxide 29.1 mmol/L (21.6-31.8) 11/19/19 14:38 Anion Gap 5.90 mmol/L (4.00-12.00) 11/19/19 14:38 BUN 13.0 mg/dL (9.0-27.0) 11/19/19 14:38 Creatinine 1.1 mg/dL (0.6-1.5) 11/19/19 14:38 Est GFR (CKD-EPI)AfAm 84.7 (60.0-200.0) 11/19/19 14:38 Est GFR (CKD-EPI)NonAf 73.1 (60.0-200.0) 11/19/19 14:38 BUN/Creatinine Ratio 11.82 Ratio (12.00-20.00) L 11/19/19 14:38 Glucose 109 mg/dL (70-110) 11/19/19 14:[address] Glu mg/dL 94 11/19/19 14:38 Hemoglobin A1c 4.9 % (4.0-6.0) 11/19/19 14:38 Calcium 9.2 mg/dL (8.7-10.3) 11/19/19 14:38 Phosphorus 3.6 mg/dL (2.4-5.1) 11/19/19 14:38 Magnesium 2.1 mg/dL (1.5-2.4) 11/19/19 14:38 Iron 65 ug/dL (65-175) 11/19/19 14:38 TIBC 298 ug/dL (228-460) 11/19/19 14:38 % Saturation 21.81 (15.00-50.00) 11/19/19 14:38 Ferritin 293.8 ng/mL (22.0-322.0) 11/19/19 14:38 Total Bilirubin 1.0 mg/dL (0.3-1.2) 11/19/19 14:38 AST 35 U/L (14-35) 11/19/19 14:38 ALT 49 U/L (10-49) 11/19/19 14:38 Alkaline Phosphatase 54 U/L (41-126) 11/19/19 14:38 Total Protein 6.2 g/dL (6.2-8.2) 11/19/19 14:38 Albumin 4.20 g/dL (3.80-4.90) 11/19/19 14:38 Globulin 2.0 g/dL (1.6-3.3) 11/19/19 14:38 Albumin/Globulin Ratio 2.10 g/dL (1.60-3.17) 11/19/19 14:38 Prealbumin 24.0 mg/dL (18.0-42.0) 11/19/19 14:38 Triglycerides 71.0 mg/dL (0.0-149.0) 11/19/19 14:38 Cholesterol 152 mg/dL (0-200) 11/19/19 14:38 LDL Cholesterol, Calc 83.8 mg/dL (0.0-131.0) 11/19/19 14:38 VLDL Cholesterol, Calc 14.20 mg/dL (5.00-40.00) 11/19/19 14:38 HDL Cholesterol 54.0 mg/dL (40.0-60.0) 11/19/19 14:38 Cholesterol/HDL Ratio 2.81 11/19/19 14:38 Vitamin A 53 ug/dL (38-106) 11/19/19 14:38 Vitamin B1 81 ug/L (38-122) 11/19/19 14:38 Vitamin B12 671.0 pg/mL (200.0-944.0) 11/19/19 14:38 Vitamin D 25-Hydroxy 37.3 ng/mL (30.0-100.0) 11/19/19 14:38 Folate 22.9 ng/mL 11/19/19 14:38 TSH 1.740 uIU/mL (0.350-5.500) 11/19/19 14:38 PTH Intact 88.8 pg/mL (14.0-72.0) H 11/19/19 14:38 Copper 816 ug/L (665-1480) 11/19/19 14:38 Selenium 134 mcg/L (63-160) 11/19/19 14:38 Zinc 65 ug/dL (60-130) 11/19/19 14:38 Objective - Vital Signs Vital signs: Vital Signs Temp 98.1 F 11/19/19 14:06 Pulse 86 11/19/19 14:06 Resp BP 142/103 11/19/19 14:06 Pulse Ox Intake & Output 11/18/19 11/19/19 11/19/19 18:59 06:59 18:59 Weight 151.046 kg - Labs CBC & Chem 7: 11/19/19 14:38 11/19/19 14:38
[2019-11-19 15:24] LABS: HCT 46.8 % (39.0-53.0); HGB 14.9 gm/dL (13.0-17.5); MCH 32.2 pg (25.0-35.0); MCHC 31.7 g/dL (31.0-37.0); MCV 101.4 fL (80.0-100.0); Mean Platelet Volume 8.1; Platelet Count 162 k/uL (150-450); RBC 4.62 m/uL (4.30-5.90); RDW 12.6 % (11.5-15.5); WBC 5.8 k/uL (3.8-10.6)
[2019-11-19 15:29] LABS: INR 1.1 (<1.2); Partial Thromboplastin Time 25.2 sec (22.0-30.0); Prothrombin Time 11.2 sec (9.0-12.0)
[2019-11-20 00:01] LABS: Hemoglobin A1C 4.9 % (4.0-6.0)
[2019-11-20 00:08] LABS: % Iron Saturation 21.81 (15.00-50.00); African American GFR (CKD) 84.7 (60.0-200.0); Albumin 4.2 g/dL (3.80-4.90); Albumin/Globulin Ratio 2.1 (1.60-3.17); Anion Gap 5.9 mmol/L (4.00-12.00); BUN/Creat Ratio 11.82 Ratio (12.00-20.00); Calcium 9.2 mg/dL (8.7-10.3); Carbon Dioxide 29.1 mmol/L (21.6-31.8); Chol/HDL Ratio 2.81; LDL Cholesterol,Calculated 83.8 mg/dL (0.0-131.0); Magnesium 2.1 mg/dL (1.5-2.4); Non-African American GFR(CKD) 73.1 (60.0-200.0); Phosphorus 3.6 mg/dL (2.4-5.1); Potassium 5.3 mmol/L (3.5-5.5); Total Protein 6.2 g/dL (6.2-8.2); VLDL Calculation 14.2 mg/dL (5.00-40.00)
[2019-11-20 00:16] LABS: Ferritin 293.8 ng/mL (22.0-322.0)
[2019-11-20 00:54] LABS: Folate, Serum 22.9 ng/mL
[2019-11-20 14:52] LABS: Zinc, Serum 65 ug/dL (60-130)
[2019-11-21 07:46] LABS: Vitamin A 53 ug/dL (38-106)
[2019-11-21 10:46] LABS: Vit B1(Thiamine) 81 ug/L (38-122)
[2019-11-22 00:18] LABS: Selenium 134 mcg/L (63-160)
== END | disposition home or self-care (01) ==
LOC: BARWHC3 12:54
PROVIDERS: ATTEND Surgery Plastic and Reconstructive Surgery
DX: Z48.815 Encounter for surgical aftercare following surgery on the digestive system (principal); E66.01 Morbid (severe) obesity due to excess calories; M17.0 Bilateral primary osteoarthritis of knee; M16.0 Bilateral primary osteoarthritis of hip; G47.33 Obstructive sleep apnea (adult) (pediatric); I11.9 Hypertensive heart disease without heart failure; I48.91 Unspecified atrial fibrillation; M79.3 Panniculitis, unspecified; E63.8 Other specified nutritional deficiencies; Z68.42 Body mass index [BMI] 45.0-49.9, adult; Z98.84 Bariatric surgery status
CPT/HCPCS: 80053; 80061; 82306; 82525; 82607; 82728; 82746; 83036; 83540; 83550; 83735; 83970; 84100; 84134; 84255; 84425; 84443; 84590; 84630; 85027; 85610; 85730; 99211

== ENCOUNTER → 2023-09-19 | Outpatient (CLI) | payer OTHER ==
[2023-09-19 15:29] VITALS: BP 156/100; PULSE 83; TEMP 98.4; BMI 46.5
--- NOTE | 2023-09-19 15:31 | P.HPBAR ---
Bariatric H&P - History & Physicial H&P Date: 09/19/23 History & Physicial: Visit/CC: RYGB F/U Patient initial contact: Initial weight: 222.969 kg Initial weight in pounds: 491.56 Height: 5 ft 10.5 in Initial BMI: 69.5 Last weight: Current weight: 149.232 kg Current weight in pounds: 329.00 Current BMI: 46.5 Needles body weight (based on NIH guidelines): 76.657 kg Excess body weight loss: 50.3% The patient is a 63 year-old M who presents for Bariatric Assessment. DATE OF SERVICE: 09/19/23 CHIEF COMPLAINT: Status post sleeve gastrectomy HISTORY OF PRESENT ILLNESS: Yasmany Hagan is a 63-year-old male status post sleeve gastrectomy 10/12/2017. He is 6 years postop. He has been lost to follow-up. Patient reports losing weight down to 275 pounds as he was a senior mechanical engineer in a factory. He has not regained 50 pounds due to inactivity for worsening atrial fibrillation. He reports multiple medications without improvement of his cardiac disease. Denies gastroesophageal reflux disease or dysphagia. He has moderate-sized pannus. Reports being referred from his online marketing strategist for assessment of his sleeve. He presents for assessment sleeve gastrectomy, weight gain and panniculitis. At his height of 5 feet 10.5 inches, his ideal body weight is 173 pounds. Highest weight was 512 pounds. Body mass index was 72.7. He comes in 329 pounds from 478 pounds, 6 years ago. He has lost 149 pounds in 6 years. His body mass index is reduced from 72.7 to 46.5. Lifetime weight loss 184 pounds. Lifetime percent excess weight loss 54%. He is 156 pounds overweight. PAST MEDICAL HISTORY: 1. Super morbid obesity due to excess calories 2. Body mass index of 72.7 3. Osteoarthritis of the knees. 4. Osteoarthritis of the hips. 5. Osteoarthritis of the lower back. 6. Obstructive sleep apnea. 7. Hypertensive heart disease. 8. Atrial fibrillation. 9. Gastroesophageal reflux disease. 10. Anxiety. 11. Memory impairment with dementia 12. Neuropathy 13. Depressive disorder 14. Migraines 15. Hyperlipidemia PAST SURGICAL HISTORY: 1. Right foot surgery. 2. Right rotator cuff surgery. 3. Sleeve gastrectomy 4. Cardiac catheterization 5. Cholecystectomy 6. Cardioversion HOME MEDICATIONS: Home Medications Medication Instructions Recorded Confirmed Omeprazole [PriLOSEC] 20 mg PO QAM 03/28/17 09/19/23 Donepezil [Aricept] 10 mg PO HS 01/23/18 09/19/23 Gabapentin [Neurontin] 300 mg PO BID 01/23/18 09/19/23 Apixaban [Eliquis] 5 mg PO BID 07/03/18 09/19/23 Erenumab-Aooe [Aimovig 140 mg SQ QMONTHLY PRN 11/19/19 09/19/23 Autoinjector] Bariatric Vitamin 1 dose PO DAILY 09/19/23 09/19/23 Calcium Carbonate [Calcium] 1,200 mg PO DAILY 09/19/23 09/19/23 Cholecalciferol [Vitamin D3 (25 25 mcg PO DAILY 09/19/23 09/19/23 Mcg = 1000 Iu)] Lutein 20 mg PO DAILY 09/19/23 09/19/23 Magnesium 500 mg PO DAILY 09/19/23 09/19/23 Metoprolol Tartrate [Lopressor] 12.5 mg PO BID 09/19/23 09/19/23 QUEtiapine FUMARATE [SEROquel] 25 mg PO HS 09/19/23 09/19/23 Vilazodone HCl [Viibryd] 20 mg PO DAILY 09/19/23 09/19/23 Vitamin B Complex 1 each PO DAILY 09/19/23 09/19/23 ALLERGIES: Allergies Allergy/AdvReac Type Severity Reaction Status Date / Time No Known Allergies Allergy Verified 11/19/19 14:13 SOCIAL HISTORY:Tobacco use. He is . His is at bedside. FAMILY HISTORY: No family history of ulcerative colitis disease or Crohn's disease. Family history of morbid obesity. No lupus in the family. No reports of stomach or esophageal cancer. His family history of gallbladder disorder. REVIEW OF ORGAN SYSTEMS: CONSTITUTIONAL: At his height of 5 feet 10.5 inches, his ideal body weight is 173 pounds. Highest weight was 512 pounds. Body mass index was 72.7. He comes in 329 pounds from 478 pounds, 6 years ago. He has lost 149 pounds in 6 years. His body mass index is reduced from 72.7 to 46.5. Lifetime weight loss 184 pounds. Lifetime percent excess weight loss 54%. He is 156 pounds overweight. HEENT: Denies any active troubles with vision or hearing. Has troubles with swallowing. ENDOCRINE: No diabetes. No hypothyroidism. CARDIOVASCULAR: Has atrial fibrillation. Has hyperlipidemia. RESPIRATORY: Has daytime somnolence. No asthma. Has obstructive sleep apnea. GI: Denies any bright red blood per rectum. No diarrhea or constipation. MUSCULOSKELETAL: Has lower back pain and joint pain. Has osteoarthritis of the knees. NEURO: Has headaches and migraines. No seizure disorders. Has neuropathy. PSYCH: Has depression or suicidal ideation. Has anxiety. Has dementia with memory impairment RHEUMATOLOGIC: No lupus. No rheumatoid arthritis. HEMATOLOGIC: No personal history of DVTs. He is on chronic anticoagulation. SKIN: No rash. No skin cancer. PHYSICAL EXAM: VITAL SIGNS: Height 5 foot 10.5 inches, weight 329 pounds. BMI 46.5 Vital Signs Temp 98.4 F 09/19/23 15:03 Pulse 83 09/19/23 15:03 Resp BP 156/100 09/19/23 15:03 Pulse Ox FiO2 Intake & Output 09/19/23 09/19/23 09/20/23 06:59 18:59 06:59 Weight 149.232 kg GENERAL: Well-developed in no acute distress. HEENT: No scleral icterus. Extraocular movements grossly intact. Hears conversational speech. No nasal drainage. NECK: Supple without lymphadenopathy. CHEST: Nonlabored respirations with equal bilateral excursions. CARDIOVASCULAR: Irregular rate. Irregular rhythm. Distal 2+ pulses. ABDOMEN: Obese, soft, nontender, nondistended. MUSCULOSKELETAL: No clubbing, cyanosis. Gross strength 5/5 distal lower extr emities. 2+ pre-tibial pitting edema. NEURO: No focal or lateralizing signs. Cranial nerves 2 through 12 grossly within normal limits. PSYCH: Appropriate affect. Alert and oriented to person, place and time. SKIN: Good skin turgor. Well perfused. ASSESSMENT: 1. Morbid obesity due to excess calories 2. Body mass index of 72.7 down to 67.8. 3. Osteoarthritis of the knees. 4. Osteoarthritis of the hips. 5. Osteoarthritis of the lower back. 6. Obstructive sleep apnea. 7. Hypertensive heart disease. 8. Atrial fibrillation. 9. Gastroesophageal reflux disease. 10. Anxiety. 11. Family history of morbid obesity. 12. Family history of gallbladder disorder. 13. Status post sleeve gastrectomy 14. Dementia 15. Neuropathy 16. Panniculitis 17. Dysphagia PLAN: 1. He has been lost to follow-up with worsening cardiac disease. Risk of exacerbation of atrial fibrillation due to hiatal hernia was described. Recommend esophagram. 2. Recommend full bariatric labs and attritional check. 3. Reports dysphagia to small pills and may benefit from upper endoscopy in the future 4. He is pending to see online marketing strategist for atrial fibrillation. Recommend follow up with online marketing strategist. Past Medical History Past Medical History: Atrial Fibrillation, GERD/Reflux, Hyperlipidemia, Hypertension, Osteoarthritis (OA), Sleep Apnea/CPAP/BIPAP Additional Past Medical History / Comment(s): USES BIPAP WITH O2 SUPPLEMENT AT 3L FOR SLEEP, CHRONIC MIGRAINES of unknown origin (leading to nausea) and dizziness (neurologist has placed him on Aricept), VARICOSE VEINS, STATES SWELLING LOWER EXTREMITIES., ARTHRITIS KNEES.,HAS HAD AFIB FOR AT LEAST 4 YEARS History of Any Multi-Drug Resistant Organisms: None Reported Past Surgical History: Bariatric Surgery, Cholecystectomy, Heart Ca theterization, Orthopedic Surgery Additional Past Surgical History / Comment(s): right rotator cuff , right foot surgery, HEART CATH X2 (. [facility] [place]), CARDIOVERSION X 2. gastric bypass 10-12-17 Past Anesthesia/Blood Transfusion Reactions: No Reported Reaction Past Psychological History: Depression Smoking Status: Current some day smoker Past Alcohol Use History: None Reported Additional Past Alcohol Use History / Comment(s): QUIT SMOKING 37 YRS AGO, SMOKED 2-4 YEARS TEENAGER., Past Drug Use History: None Reported - Past Family History Mother Family Medical History: Deep Vein Thrombosis (DVT) Father Family Medical History: Diabetes Mellitus Additional Family Medical History / Comment(s): hypotension Surgical - Exam Vital Signs Temp Pulse BP 98.4 F 83 156/100 09/19/23 15:03 09/19/23 15:03 09/19/23 15:03 Results - Labs 09/19/23 16:14 09/19/23 16:14 Bariatric Checklist Checklist: Plan: Checklist: EGD: 1. Hiatal hernia: 2. H. Pylori: HgbA1c: Vitamin D: Smoking: Former smoker Primary care physician referral: Dr. Julian Alvarado, ([place]) Psychiatry clearance: Cardiology clearance: Sleep study: Diet journal: VTE risk score: VTE risk level: Rehab needs at discharge:
[2023-09-19 17:22] LABS: INR 1.1 (<1.2)
[2023-09-19 21:26] LABS: HCT 41.9 % (39.6-50.0); HGB 13.6 g/dL (13.0-17.0); MCH 33.3 pg (27.0-32.0); MCHC 32.5 g/dL (32.0-37.0); MCV 102.7 FL (80.0-97.0); Mean Platelet Volume 11.1 FL (9.5-12.2); NRBC Per 100 WBC 0 X 10*3/uL (0.00-0.01); Platelet Count 145 X 10*3/uL (140-440); RBC 4.08 X 10*6/uL (4.40-5.60); WBC 4.89 X 10*3/uL (4.50-10.00)
[2023-09-19 21:29] LABS: % Iron Saturation 24.86 (15.00-50.00); ALT 58 U/L (10-49); AST 30 U/L (14-35); Albumin 4.1 g/dL (3.8-4.9); Albumin/Globulin Ratio 1.86 Ratio (1.60-3.17); Alkaline Phosphatase 52 U/L (41-126); Calcium 9.2 mg/dL (8.7-10.3); Carbon Dioxide 25.4 mmol/L (21.6-31.8); Chloride 109 mmol/L (96-109); Chol/HDL Ratio 2.68 Ratio; Globulin 2.2 g/dL (1.6-3.3); Glucose 94 mg/dL (70-110); Iron 87 UG/DL (65-175); LDL Cholesterol,Calculated 78.2 mg/dL (0.0-131.0); Magnesium 2.1 mg/dL (1.5-2.4); Phosphorus 3.5 mg/dL (2.4-5.1); Potassium 4.9 mmol/L (3.5-5.5); Sodium 144 mmol/L (135-145); Total Bilirubin 1.6 mg/dL (0.3-1.2); Total Iron Binding Capacity 350 UG/DL (228-460); Total Protein 6.3 g/dL (6.2-8.2); VLDL Calculation 10.24 mg/dL (5.00-40.00)
[2023-09-20 02:09] LABS: Prealbumin 23.1 mg/dL (18.0-42.0)
[2023-09-20 15:13] LABS: Zinc, Serum 69 ug/dL (60-130)
[2023-09-21 10:59] LABS: Vit B1(Thiamine) 93 ug/L (38-122)
== END ==
LOC: BARWHC3 14:07
PROVIDERS: ATTEND Surgery Plastic and Reconstructive Surgery
DX: E66.01 Morbid (severe) obesity due to excess calories (principal); D50.8 Other iron deficiency anemias; K90.89 Other intestinal malabsorption; E55.9 Vitamin D deficiency, unspecified; I13.10 Hypertensive heart and chronic kidney disease without heart failure, with stage 1 through stage 4 chronic kidney disease, or unspecified chronic kidney disease; N19 Unspecified kidney failure; K74.1 Hepatic sclerosis; T56.894A Toxic effect of other metals, undetermined, initial encounter; K50.90 Crohn's disease, unspecified, without complications; M17.0 Bilateral primary osteoarthritis of knee; M16.0 Bilateral primary osteoarthritis of hip; M47.816 Spondylosis without myelopathy or radiculopathy, lumbar region; I48.91 Unspecified atrial fibrillation; G47.33 Obstructive sleep apnea (adult) (pediatric); E78.5 Hyperlipidemia, unspecified; G62.9 Polyneuropathy, unspecified; F41.9 Anxiety disorder, unspecified; F32.A Depression, unspecified; G43.909 Migraine, unspecified, not intractable, without status migrainosus; Z86.59 Personal history of other mental and behavioral disorders; Z79.899 Other long term (current) drug therapy; Z79.01 Long term (current) use of anticoagulants; Z68.42 Body mass index [BMI] 45.0-49.9, adult; Z87.891 Personal history of nicotine dependence; Z98.84 Bariatric surgery status
CPT/HCPCS: 80053; 80061; 82306; 82525; 82607; 82728; 82746; 83036; 83540; 83550; 83735; 83970; 84100; 84134; 84255; 84425; 84443; 84590; 84630; 85027; 85610; 85730; 99211

== ENCOUNTER → 2023-10-12 | Outpatient (CLI) | payer OTHER ==
--- NOTE | 2023-10-12 11:48 | FL ---
EXAMINATION TYPE: FL single contrast barium swallow DATE OF EXAM: 10/12/2023 CLINICAL INDICATION: None COMPARISON: None Total Fluoroscopy Time: 50 seconds QOI=025.58 mGycm2 23 images obtained. FINDINGS: The patient swallowed oral contrast without difficulty or delay. There is normal course and caliber o f the thoracic esophagus. Minimal tertiary peristaltic waves are encountered. By single contrast tech nique, no abnormal filling defect is clearly identified. There is prompt passage of contrast from the esophagus into the stomach and with postsurgical changes of gastrojejunostomy demonstrated. Prompt passage of contrast across the gastrojejunostomy without any abnormal narrowing or filling def ect seen. IMPRESSION: Unremarkable appearance to the patient's esophagus and gastrojejunostomy relating to the previous [id number] gastric bypass.
== END | disposition home or self-care (01) ==
LOC: RADUSWWP 10:53
PROVIDERS: ATTEND Surgery Plastic and Reconstructive Surgery
DX: R13.10 Dysphagia, unspecified (principal); Z98.84 Bariatric surgery status
CPT/HCPCS: 74220